=== PATIENT | male | born 1955 | race Caucasian/White ===

== ENCOUNTER 2019-09-25 15:47 | Inpatient (IN) | payer MEDICARE ==
[2019-09-25] MEDS ORDERED: MAG HYDROX/AL HYDROX/SIMETH 30 ML, HYOSCYAMINE ELIXIR 10 ML, LIDOCAINE VISCOUS 2% 10 ML PO STA ×3 (16:54)
[2019-09-25] MEDS ORDERED: SODIUM CHLORIDE 0.9% 500 ML 500 ML IV STA (16:54)
[2019-09-25 17:29] LABS: Basophils % (A) 0 %; Eosinophils % (A) 0 %; HCT 42.1 % (39.0-53.0); HGB 14.8 gm/dL (13.0-17.5); Lymphocytes # (A) 0.4 k/uL (1.0-4.8); Lymphocytes % (A) 3 %; MCH 29.8 pg (25.0-35.0); MCHC 35.2 g/dL (31.0-37.0); MCV 84.7 fL (80.0-100.0); Mean Platelet Volume 6.6; Monocytes # (A) 0.5 k/uL (0-1.0); Monocytes % (A) 4 %; Neutrophils # (A) 13.5 k/uL (1.3-7.7); Neutrophils % (A) 93 %; Platelet Count 207 k/uL (150-450); RBC 4.97 m/uL (4.30-5.90); RDW 13.4 % (11.5-15.5); WBC 14.6 k/uL (3.8-10.6)
[2019-09-25 17:42] LABS: Albumin 4.7 g/dL (3.5-5.0); Calcium 9.9 mg/dL (8.4-10.2); Potassium 3.9 mmol/L (3.5-5.1); Total Bilirubin 1.3 mg/dL (0.2-1.3)
[2019-09-25 17:45] LABS: Appearance,Urine Clear (Clear); Bilirubin,Urine Negative (Negative); Blood,Urine Small (Negative); Color,Urine Yellow; Glucose,Urine (UA) 4+ (Negative); Hyaline Casts,Urine 3 /lpf (0-2); Leukocyte Esterase,Urine Negative (Negative); Mucus,Urine Rare /hpf; Nitrite,Urine Negative (Negative); PH, Urine 5.5 (5.0-8.0); Protein,Urine 1+ (Negative); RBC,Urine 1 /hpf (0-5); Specific Gravity,Urine 1.019 (1.001-1.035); Urobilinogen,Urine <2.0 mg/dL (<2.0); WBC,Urine 1 /hpf (0-5)
[2019-09-25 17:54] LABS: Ketones,Urine 2+ (Negative)
[2019-09-25] MEDS ORDERED: SODIUM CHLORIDE 0.9% 1,000 ML IV STA (18:07)
[2019-09-25] MEDS ORDERED: ACETAMINOPHEN TAB 325 MG TAB PO STA (18:22)
[2019-09-25] MEDS ORDERED: PIPERACILLIN-TAZOBACTAM 3.375 GM in SODIUM CHLORIDE 0.9% 100 ML IVPB STA (19:07)
--- NOTE | 2019-09-25 19:08 | ED ---
General Adult HPI - General Chief complaint: Abdominal Pain Stated complaint: POSS MED REACTION Time Seen by Provider: 09/25/19 16:18 Source: patient, RN notes reviewed, old records reviewed Mode of arrival: ambulatory Limitations: no limitations - History of Present Illness Initial comments: 64-year-old male patient past history. Confer type 2 diabetes hypertension presents to ED for chief complaint of epigastric abdominal pain. Patient reports that he recently increased his dose of metformin. Patient reports that today he began to experience epigastric abdominal pain. Reports nausea without emesis. Denies any other complaints. Denies any nausea vomiting diarrhea. Systemic: Pt denies fatigue, fever/chills, rash. Pt denies weakness, night sw eats, weight loss. Neuro: Pt denies headache, visual disturbances, syncope or pre-syncope. HEENT: Pt denies ocular discharge or irritation, otalgia, rhinorrhea, pharyngitis or notable lymphadenopathy. Cardiopulmonary: Pt denies chest pain, SOB, heart palpitations, dyspnea on exertion. Abdominal/GI: Pt denies n/v/d. : Pt denies dysuria, burning w/ urination, frequency/urgency. Denies new onset urinary or bowel incontinence. MSK: Pt denies myalgia, loss of strength or function in extremities. Neuro: Pt denies new onset weakness, paresthesias. - Related Data Allergies Allergy/AdvReac Type Severity Reaction Status Date / Time No Known Allergies Allergy Verified 09/25/19 16:00 Review of Systems ROS Statement: Those systems with pertinent positive or pertinent negative responses have been documented in the HPI. ROS Other: All systems not noted in ROS Statement are negative. Past Medical History Past Medical History: Diabetes Mellitus, Hypertension History of Any Multi-Drug Resistant Organisms: None Reported Past Surgical History: Hernia Repair Past Psychological History: Depression Smoking Status: Never smoker Past Alcohol Use History: None Reported Past Drug Use History: None Reported General Exam - General Exam Comments Initial Comments: Constitutional: NAD, AOX3, Pt has pleasant affect. HEENT: NC/AT, trachea midline, neck supple, no lymphadenopathy. Posterior pharynx non erythematous, without exudates. External ears appear normal, without discharge. Mucous membranes moist. Eyes PERRLA, EOM intact. There is no scleral icterus. No pallor noted. Cardiopulmonary: RRR, no murmurs, rubs or gallops, no JVD noted. Lungs CTAB in anterior and posterior acevedo. No peripheral edema. Abdominal exam: Abdomen soft and non-distended. Abdomen mildly tender to palpation in epigastric region. No other areas of abdominal tenderness. Slaughter sign is negative. Bowel sounds active in LLQ. No hepatosplenomegaly. No ecchymosis Neuro: CN II-XII grossly intact. No nuchal rigidity. No raccon eyes, no arango sign, no hemotympanum. No cervical spinal tenderness. MSK: No posterior calf tenderness bilaterally, homans sign negative bilaterally. Posterior tibialis and radial pulse +2 bilaterally. Sensation intact in upper and lower extremities. Full active ROM in upper and lower extremities, 5/5 stregnth. Limitations: no limitations Course Vital Signs 09/25/19 09/25/19 09/25/19 15:57 18:15 19:09 Temperature 99.2 F 103.0 F H 102.5 F H Pulse Rate 89 111 H 100 Respiratory 20 18 18 Rate Blood Pressure 148/88 150/80 O2 Sat by Pulse 99 98 Oximetry Medical Decision Making - Medical Decision Making 64-year-old male patient presents to the chief complaint of one day of epigastric abdominal pain. Patient vital signs initially were stable afebrile. Patient did develop a fever during stay. Administered antipyretic. Physical exam slight epigastric tenderness. Laboratory investigations revealed a leuko cytosis of 14.6. Lactic acidosis of 2.4. UA displayed +2 ketones, +4 glucose. Small blood. Patient had no relief with GI cocktail. CT and pelvis displayed acute cholecystitis. EKG nonischemic. Patient will be admitted to Dr. Henley. Case discussed with Dr. Paul. - Lab Data Result diagrams: 09/25/19 16:15 09/25/19 16:15 Lab Results 09/25/19 09/25/19 09/25/19 Range/Units 16:15 16:15 16:15 WBC 14.6 H (3.8-10.6) k/uL RBC 4.97 (4.30-5.90) m/uL Hgb 14.8 (13.0-17.5) gm/dL Hct 42.1 (39.0-53.0) % MCV 84.7 (80.0-100.0) fL MCH 29.8 (25.0-35.0) pg MCHC 35.2 (31.0-37.0) g/dL RDW 13.4 (11.5-15.5) % Plt Count 207 (150-450) k/uL Neutrophils % 93 % Lymphocytes % 3 % Monocytes % 4 % Eosinophils % 0 % Basophils % 0 % Neutrophils # 13.5 H (1.3-7.7) k/uL Lymphocytes # 0.4 L (1.0-4.8) k/uL Monocytes # 0.5 (0-1.0) k/uL Eosinophils # 0.0 (0-0.7) k/uL Basophils # 0.0 (0-0.2) k/uL PT (9.0-12.0) sec INR (<1.2) APTT (22.0-30.0) sec Sodium 137 (137-145) mmol/L Potassium 3.9 (3.5-5.1) mmol/L Chloride 97 L (98-107) mmol/L Carbon Dioxide 23 (22-30) mmol/L Anion Gap 17 mmol/L BUN 19 (9-20) mg/dL Creatinine 1.35 H (0.66-1.25) mg/dL Est GFR (CKD-EPI)AfAm 63 (>60 ml/min/1.73 sqM) Est GFR (CKD-EPI)NonAf 55 (>60 ml/min/1.73 sqM) Glucose 189 H (74-99) mg/dL Plasma Lactic Acid Jose 2.4 H* (0.7-2.0) mmol/L Calcium 9.9 (8.4-10.2) mg/dL Total Bilirubin 1.3 (0.2-1.3) mg/dL AST 19 (17-59) U/L ALT 23 (21-72) U/L Alkaline Phosphatase 93 (38-126) U/L Total Protein 7.0 (6.3-8.2) g/dL Albumin 4.7 (3.5-5.0) g/dL Lipase 80 (23-300) U/L Urine Color Urine Appearance (Clear) Urine pH (5.0-8.0) Ur Specific [place] (1.001-1.035) Urine Protein (Negative) Urine Glucose (UA) (Negative) Urine Ketones (Negative) Urine Blood (Negative) Urine Nitrite (Negative) Urine Bilirubin (Negative) Urine Urobilinogen (<2.0) mg/dL Ur Leukocyte Esterase (Negative) Urine RBC (0-5) /hpf Urine WBC (0-5) /hpf Hyaline Casts (0-2) /lpf Urine Mucus (None) /hpf 09/25/19 09/25/19 Range/Units 16:15 17:20 WBC (3.8-10.6) k/uL RBC (4.30-5.90) m/uL Hgb (13.0-17.5) gm/dL Hct (39.0-53.0) % MCV (80.0-100.0) fL MCH (25.0-35.0) pg MCHC (31.0-37.0) g/dL RDW (11.5-15.5) % Plt Count (150-450) k/uL Neutrophils % % Lymphocytes % % Monocytes % % Eosinophils % % Basophils % % Neutrophils # (1.3-7.7) k/uL Lymphocytes # (1.0-4.8) k/uL Monocytes # (0-1.0) k/uL Eosinophils # (0-0.7) k/uL Basophils # (0-0.2) k/uL PT 10.6 (9.0-12.0) sec INR 1.0 (<1.2) APTT 28.4 (22.0-30.0) sec Sodium (137-145) mmol/L Potassium (3.5-5.1) mmol/L Chloride (98-107) mmol/L Carbon Dioxide (22-30) mmol/L Anion Gap mmol/L BUN (9-20) mg/dL Creatinine (0.66-1.25) mg/dL Est GFR (CKD-EPI)AfAm (>60 ml/min/1.73 sqM) Est GFR (CKD-EPI)NonAf (>60 ml/min/1.73 sqM) Glucose (74-99) mg/dL Plasma Lactic Acid Jose (0.7-2.0) mmol/L Calcium (8.4-10.2) mg/dL Total Bilirubin (0.2-1.3) mg/dL AST (17-59) U/L ALT (21-72) U/L Alkaline Phosphatase (38-126) U/L Total Protein (6.3-8.2) g/dL Albumin (3.5-5.0) g/dL Lipase (23-300) U/L Urine Color Yellow Urine Appearance Clear (Clear) Urine pH 5.5 (5.0-8.0) Ur Specific [place] 1.019 (1.001-1.035) Urine Protein 1+ H (Negative) Urine Glucose (UA) 4+ H (Negative) Urine Ketones 2+ H (Negative) Urine Blood Small H (Negative) Urine Nitrite Negative (Negative) Urine Bilirubin Negative (Negative) Urine Urobilinogen <2.0 (<2.0) mg/dL Ur Leukocyte Esterase Negative (Negative) Urine RBC 1 (0-5) /hpf Urine WBC 1 (0-5) /hpf Hyaline Casts 3 H (0-2) /lpf Urine Mucus Rare H (None) /hpf - EKG Data -: EKG Interpreted by Me (and Dr. Paul ) EKG Comments: Ventricular rate 105, PA 146, QRS 96, QT/QTC 350/462. Sinus tachycardia, no concern for acute ischemia. Disposition Clinical Impression: Acute cholecystitis Disposition: ADMITTED IP TO THIS HOSP Condition: Stable Is patient prescribed a controlled substance at d/c from ED?: No Referrals: Martir Hidalgo MD [Primary Care Provider] - 1-2 days
[2019-09-25] MEDS ORDERED: MORPHINE SULFATE 4 MG/ML SYRINGE IVP STA (19:10)
--- NOTE | 2019-09-25 19:12 | CT ---
EXAMINATION TYPE: CT abdomen pelvis w con DATE OF EXAM: 09/25/2019 COMPARISON: None. HISTORY: Upper abdominal pain and fever. CT DLP: 1130.4 mGycm, Automated Exposure Control for Dose Reduction was Utilized. CONTRAST: CT scan of the abdomen and pelvis is performed without oral but with IV Contrast, patient injected wi th 80 mL of Isovue 300. FINDINGS: LUNG BASES: Dependent atelectasis. LIVER/GB: Some scattered simple-appearing thin-walled cysts throughout the liver are present. There i s 3 mm common bile duct gallstone coronal image 51. There are 2 additional small calcified gallstones distal common bile duct coronal image 49 measuring between 2 to 3 mm. There a few additional depende nt calcified gallstones. Gallbladder has distended margins with mild surrounding inflammatory change and wall thickening. No significant intrahepatic or extra hepatic biliary dilatation is noted. PANCREAS: No significant abnormality is seen. SPLEEN: No significant abnormality is seen. ADRENALS: No significant abnormality is seen. KIDNEYS: Subcentimeter round lesion upper pole right kidney favor simple thin-walled clear axial imag e 41. BOWEL: Slightly prominent gas-filled cecum wandering into the anterior right midabdomen. No suspiciou s small or large bowel dilatation. Redundant sigmoid colon. PROSTATE/SEMINAL VESICLES: Mildly enlarged prostate gland consistent with BPH. Adjacent pelvic phlebo liths. LYMPH NODES: No greater than 1cm abdominal or pelvic lymph nodes are appreciated. OSSEOUS STRUCTURES: Moderate narrowing and spurring in both hip joints. Moderate multilevel spurring the visualized thoracic spine. Some facet arthropathy lower lumbar spine. OTHER: Mild calcified plaque aorta extends into branch vessels. IMPRESSION: Acute cholecystitis is present as detailed above. In addition, several common bile duct g allstones are noted without significant biliary dilatation. Findings discussed with ordering ER physician via telephone at time of dictation.
[2019-09-25 19:45] LABS: Partial Thromboplastin Time 28.4 sec (22.0-30.0); Prothrombin Time 10.6 sec (9.0-12.0)
[2019-09-25] MEDS ORDERED: ONDANSETRON 4 MG/2 ML VIAL IVP PRN (19:59)
[2019-09-25] MEDS ORDERED: NALOXONE 0.4 MG/ML 1 ML VIAL IV PRN (19:59)
[2019-09-25] MEDS ORDERED: IBUPROFEN 400 MG TAB PO PRN (20:03)
--- NOTE | 2019-09-25 20:11 | XR ---
EXAMINATION TYPE: XR chest 2V DATE OF EXAM: 09/25/2019 COMPARISON: Same day CT abdomen and pelvis study HISTORY: Presurgical study. TECHNIQUE: Frontal and lateral views of the chest are obtained. FINDINGS: There is nonspecific left basilar opacity silhouetting left hemidiaphragm on frontal view less well-seen likely more anterior on lateral view. Right lung is clear. The cardiac silhouette size is within normal limits. Mild multilevel spurring in the spine. IMPRESSION: Patchy left basilar likely lingular acute atelectasis.
[2019-09-25] MEDS: SODIUM CHLORIDE 0.9% 1,000 ML IV SCH (20:37)
[2019-09-25] MEDS ORDERED: SODIUM CHLORIDE 0.9% 2,000 ML IV ONE (20:59)
[2019-09-25] MEDS: ACETAMINOPHEN IV (For NPO) 1,000 MG in EMPTY BAG 1 BAG IVPB SCH ×2 (22:26→23:59)
[2019-09-25 23:55] LABS: Glucose,Whole Blood 179 mg/dL (75-99)
[2019-09-26] MEDS: INSULIN ASPART (NovoLOG) 100 UNIT/ML VIAL SQ SCH ×4 (00:09→17:26)
[2019-09-26] MEDS: PIPERACILLIN-TAZOBACTAM 3.375 GM in SODIUM CHLORIDE 0.9% 100 ML IVPB SCH ×4 (00:09→23:34)
[2019-09-26] MEDS: ACETAMINOPHEN IV (For NPO) 1,000 MG in EMPTY BAG 1 BAG IVPB SCH ×2 (04:40→11:35)
[2019-09-26] MEDS: SODIUM CHLORIDE 0.9% 1,000 ML IV SCH ×3 (06:16→23:34)
[2019-09-26 06:19] LABS: Glucose,Whole Blood 118 mg/dL (75-99)
[2019-09-26] MEDS: LISINOPRIL 10 MG TAB PO SCH (07:30)
[2019-09-26] MEDS: PANTOPRAZOLE 40 MG/10 ML VIAL IVP SCH (07:32)
--- NOTE | 2019-09-26 09:19 | P.GSHP ---
History of Present Illness H&P Date: 09/25/19 CHIEF COMPLAINT: Cholecystitis HISTORY OF PRESENT ILLNESS: The patient is a 64-year-old male who presents with history of epigastric including right upper quadrant abdominal pain ongoing for the last 2 days. Reports severe pressure along the epigastrium. No previous history of gallstones. He reports taking a new diabetic medication in the last 24-48 hours that prompted his symptoms. He reports eating cantaloupe yesterday. He denies any appetite today. Two days prior he did have [employer] bread soup. Two days ago, 6 hours following his soup he started to have abdominal pain that grew in intensity from moderate to severe hence his presentation today in the emergency room. He comes in with fevers over 102 documented in the ER. His pain is controlled with IV pain medications. Denies any prior cardiac history. He does report prior inguinal hernia surgery of the bilateral groins. Secondary to his presentation of fever, leukocytosis and sepsis, he has been admitted. PAST MEDICAL HISTORY: Please see list PAST SURGICAL HISTORY: Please see list MEDICATIONS: Please see list ALLERGIES: Denies. SOCIAL HISTORY: No illicit drug use or recent tobacco use FAMILY HISTORY: Pertinent for gallbladder disease REVIEW OF ORGAN SYSTEMS: CONSTITUTIONAL: Has fevers. No chills. HEENT: Denies any troubles with the hearing. Wears glasses. ENDOCRINE: No reports of hypothyroidism. Has diabetes. RESPIRATORY: No recent pneumonias. No asthma. CARDIOVASCULAR: Denies chest pain or palpitations. No recent EKG or cardiac workup beyond 1 year. GI: No blood in stools or constipation. Has gastroesophageal reflux disease. MUSCULOSKELETAL: Has occasional joint pain including back pain. NEURO: No seizure disorders or headaches. No recent stroke. PSYCH: Has depression. No suicidal ideation. HEMATOLOGIC: No personal or family history of DVTs or pulmonary emboli. SKIN: No rash or current skin cancer. PHYSICAL EXAM: VITAL SIGNS: Reviewed. GENERAL: Well-developed pleasant male in no acute distress. HEENT: No scleral icterus. Extraocular movements grossly intact. Moist buccal mucosa. NECK: Supple without lymphadenopathy. CHEST: Unlabored respirations. Equal bilateral excursions. CARDIOVASCULAR: Regular rate regular rhythm rhythm. Distal 2+ pulses. ABDOMEN: Soft, nondistended. Tender along the epigastrium and right upper quadrant. No peritonitis. MUSCULOSKELETAL: No clubbing, cyanosis, or edema. NEURO : No focal or lateralizing signs. Cranial nerves II-12 within normal limits. PSYCH: Alert and oriented to person, place and time. SKIN: Well perfused. Good skin turgor. STUDIES: CT of the abdomen and pelvis independently reviewed demonstrating gallstones at the infundibulum of the gallbladder. ASSESSMENT: 1. Epigastric and right upper quadrant abdominal pain 2. Acute cholecystitis 3. Sepsis PLAN: 1. Sepsis protocol activated in ER 2. Start IV antibiotics, broad spectrum 3. DVT prophylaxis 4. Incentive spirometer to prevent atelectasis 5. Nothing by mouth except ice chips and popsicles 6. Sliding scale insulin for diabetes 7. Will need echo and cardiac risk assessment prior to surgery Past Medical History Past Medical History: Diabetes Mellitus, Hypertension History of Any Multi-Drug Resistant Organisms: None Reported Past Surgical History: Hernia Repair Past Psychological History: Depression Smoking Status: Never smoker Past Alcohol Use History: None Reported Past Drug Use History: None Reported - Past Family History Mother Additional Family Medical History / Comment(s): brain tumer Medications and Allergies Home Medications Medication Instructions Recorded Confirmed Type Atorvastatin Calcium [Lipitor] 10 mg PO HS 09/25/19 09/25/19 History Lisinopril [Zestril] 10 mg PO DAILY 09/25/19 09/25/19 History Omeprazole 20 mg PO DAILY 09/25/19 09/25/19 History Sertraline [Zoloft] 100 mg PO DAILY 09/25/19 09/25/19 History buPROPion XL [Wellbutrin Xl] 150 mg PO [id number]-BRKFST 09/25/19 09/25/19 History metFORMIN HCL ER [Glucophage Xr] 1,000 mg PO AC-BID 09/25/19 09/25/19 History Allergies Allergy/AdvReac Type Severity Reaction Status Date / Time No Known Allergies Allergy Verified 09/25/19 20:46 Surgical - Exam Vital Signs Temp Pulse Resp BP Pulse Ox 99.2 F 89 20 148/88 99 09/25/19 15:57 09/25/19 15:57 09/25/19 15:57 09/25/19 15:57 09/25/19 15:57 Results - Labs 09/25/19 16:15 09/25/19 16:15 Abnormal Lab Results - Last 24 Hours (Table) 09/25/19 09/25/19 09/25/19 Range/Units 16:15 16:15 16:15 WBC 14.6 H (3.8-10.6) k/uL Neutrophils # 13.5 H (1.3-7.7) k/uL Lymphocytes # 0.4 L (1.0-4.8) k/uL Chloride 97 L (98-107) mmol/L Creatinine 1.35 H (0.66-1.25) mg/dL Glucose 189 H (74-99) mg/dL Plasma Lactic Acid Jose 2.4 H* (0.7-2.0) mmol/L Urine Protein (Negative) Urine Glucose (UA) (Negative) Urine Ketones (Negative) Urine Blood (Negative) Hyaline Casts (0-2) /lpf Urine Mucus (None) /hpf 09/25/19 Range/Units 17:20 WBC (3.8-10.6) k/uL Neutrophils # (1.3-7.7) k/uL Lymphocytes # (1.0-4.8) k/uL Chloride (98-107) mmol/L Creatinine (0.66-1.25) mg/dL Glucose (74-99) mg/dL Plasma Lactic Acid Jose (0.7-2.0) mmol/L Urine Protein 1+ H (Negative) Urine Glucose (UA) 4+ H (Negative) Urine Ketones 2+ H (Negative) Urine Blood Small H (Negative) Hyaline Casts 3 H (0-2) /lpf Urine Mucus Rare H (None) /hpf Diabetes panel 09/25/19 Range/Units 16:15 Sodium 137 (137-145) mmol/L Potassium 3.9 (3.5-5.1) mmol/L Chloride 97 L (98-107) mmol/L Carbon Dioxide 23 (22-30) mmol/L BUN 19 (9-20) mg/dL Creatinine 1.35 H (0.66-1.25) mg/dL Glucose 189 H (74-99) mg/dL Calcium 9.9 (8.4-10.2) mg/dL AST 19 (17-59) U/L ALT 23 (21-72) U/L Alkaline Phosphatase 93 (38-126) U/L Total Protein 7.0 (6.3-8.2) g/dL Albumin 4.7 (3.5-5.0) g/dL Calcium panel 09/25/19 Range/Units 16:15 Calcium 9.9 (8.4-10.2) mg/dL Albumin 4.7 (3.5-5.0) g/dL Pituitary panel 09/25/19 Range/Units 16:15 Sodium 137 (137-145) mmol/L Potassium 3.9 (3.5-5.1) mmol/L Chloride 97 L (98-107) mmol/L Carbon Dioxide 23 (22-30) mmol/L BUN 19 (9-20) mg/dL Creatinine 1.35 H (0.66-1.25) mg/dL Glucose 189 H (74-99) mg/dL Calcium 9.9 (8.4-10.2) mg/dL Adrenal panel 09/25/19 Range/Units 16:15 Sodium 137 (137-145) mmol/L Potassium 3.9 (3.5-5.1) mmol/L Chloride 97 L (98-107) mmol/L Carbon Dioxide 23 (22-30) mmol/L BUN 19 (9-20) mg/dL Creatinine 1.35 H (0.66-1.25) mg/dL Glucose 189 H (74-99) mg/dL Calcium 9.9 (8.4-10.2) mg/dL Total Bilirubin 1.3 (0.2-1.3) mg/dL AST 19 (17-59) U/L ALT 23 (21-72) U/L Alkaline Phosphatase 93 (38-126) U/L Total Protein 7.0 (6.3-8.2) g/dL Albumin 4.7 (3.5-5.0) g/dL Assessment and Plan (1) Sepsis Current Visit: Yes Status: Acute Code(s): A41.9 - SEPSIS, UNSPECIFIED ORGANISM SNOMED Code(s): 22469876 (2) Fever Current Visit: Yes Status: Acute Code(s): R50.9 - FEVER, UNSPECIFIED SNOMED Code(s): 337176399 (3) Acute cholecystitis due to biliary calculus Current Visit: Yes Status: Acute Code(s): K80.00 - CALCULUS OF GALLBLADDER W ACUTE CHOLECYST W/O OBSTRUCTION SNOMED Code(s): 04047456219205 (4) Diabetes type 2, uncontrolled Current Visit: Yes Status: Acute Code(s): E11.65 - TYPE 2 DIABETES MELLITUS WITH HYPERGLYCEMIA SNOMED Code(s): 283349098 (5) Hypertensive heart disease Current Visit: Yes Status: Acute Code(s): I11.9 - HYPERTENSIVE HEART DISEASE WITHOUT HEART FAILURE SNOMED Code(s): 27514043 (6) Depressive disorder Current Visit: Yes Status: Acute Code(s): F32.9 - MAJOR DEPRESSIVE DISORDER, SINGLE EPISODE, UNSPECIFIED SNOMED Code(s): 59656722 (7) Acute cholecystitis Current Visit: Yes Status: Acute Code(s): K81.0 - ACUTE CHOLECYSTITIS SNOMED Code(s): 83944877 (8) Hyperlipidemia associated with type 2 diabetes mellitus Current Visit: Yes Status: Acute Code(s): E11.69 - TYPE 2 DIABETES MELLITUS WITH OTHER SPECIFIED COMPLICATION; E78.5 - HYPERLIPIDEMIA, UNSPECIFIED SNOMED Code(s): 885866881665
[2019-09-26] MEDS: MORPHINE SULFATE 4 MG/ML SYRINGE IV PRN ×2 (09:26→16:27)
[2019-09-26 10:21] LABS: Basophils % (A) 0 %; Eosinophils % (A) 0 %; HCT 37.2 % (39.0-53.0); HGB 12.7 gm/dL (13.0-17.5); Lymphocytes # (A) 0.4 k/uL (1.0-4.8); Lymphocytes % (A) 3 %; MCH 29.5 pg (25.0-35.0); MCHC 34.3 g/dL (31.0-37.0); MCV 85.9 fL (80.0-100.0); Mean Platelet Volume 6.6; Monocytes # (A) 0.4 k/uL (0-1.0); Monocytes % (A) 4 %; Neutrophils # (A) 11.4 k/uL (1.3-7.7); Neutrophils % (A) 92 %; Platelet Count 140 k/uL (150-450); RBC 4.32 m/uL (4.30-5.90); RDW 13.8 % (11.5-15.5); WBC 12.3 k/uL (3.8-10.6)
--- NOTE | 2019-09-26 10:26 | ECHOF ---
Referral Reason:hypertension MEASUREMENTS -------- HEIGHT: 182.9 cm WEIGHT: 92.1 kg BP: RVIDd: 2.9 cm (< 3.3) IVSd: 1.4 cm (0.6 - 1.1) LVIDd: 4.8 cm (3.9 - 5.3) LVPWd: 1.4 cm (0.6 - 1.1) IVSs: 1.9 cm LVIDs: 3.7 cm LVPWs: 1.8 cm LA Diam: 3.9 cm (2.7 - 3.8) LAESV Index (A-L): 22.11 ml/m Ao Diam: 3.5 cm (2.0 - 3.7) AV Cusp: 2.3 cm (1.5 - 2.6) LA Diam: 4.3 cm (2.7 - 3.8) MV EXCURSION: 13.189 mm (> 18.000) MV EF SLOPE: 65 mm/s (70 - 150) EPSS: 0.9 cm MV E Gabino: 0.53 m/s MV DecT: 212 ms MV A Gabino: 1.02 m/s MV E/A Ratio: 0.53 AR PHT: 353 ms RAP: 5.00 mmHg RVSP: 48.13 mmHg FINDINGS -------- Sinus rhythm. This was a technically adequate study. The left ventricular size is normal. There is mild concentric left ventricular hypertrophy. Overa ll left ventricular systolic function is low-normal with, an EF between 50 - 55 %. The right ventricle is normal in size. The right atrial size is normal. There is [id number] aortic regurgitation. Mild mitral annular calcification present. Mild mitral regurgitation is present. Moderate tricuspid regurgitation present. There is moderate pulmonary hypertension. The right damion tricular systolic pressure, as measured by Doppler, is 48.13mmHg. There is no pulmonic regurgitation present. The aortic root size is normal. There is no pericardial effusion. CONCLUSIONS -------- 1. Sinus rhythm. 2. This was a technically adequate study. 3. The left ventricular size is normal. 4. There is mild concentric left ventricular hypertrophy. 5. Overall left ventricular systolic function is low-normal with, an EF between 50 - 55 %. 6. The right ventricle is normal in size. 7. The right atrial size is normal. 8. There is [id number] aortic regurgitation. 9. Mild mitral annular calcification present. 10. Mild mitral regurgitation is present. 11. Moderate tricuspid regurgitation present. 12. There is moderate pulmonary hypertension. 13. The right ventricular systolic pressure, as measured by Doppler, is 48.13mmHg. 14. There is no pulmonic regurgitation present. 15. The aortic root size is normal. 16. There is no pericardial effusion. [employer] HATCHERY HELPER: Sangeetha Kay RDCS
[2019-09-26 10:30] LABS: Albumin 3.1 g/dL (3.5-5.0); Calcium 8.7 mg/dL (8.4-10.2); Potassium 4.5 mmol/L (3.5-5.1); Total Bilirubin 4.7 mg/dL (0.2-1.3); Total Protein 5.4 g/dL (6.3-8.2)
[2019-09-26] MEDS ORDERED: METOPROLOL TARTRATE 25 MG TAB PO SCH (11:30)
--- NOTE | 2019-09-26 11:54 | P.CRDCN ---
History of Present Illness History of present illness: HISTORY OF PRESENTING ILLNESS This is a pleasant 64-year-old male past medical history significant for dyslipidemia, diabetes mellitus and hypertension. He denies prior history of coronary artery disease and does not follow with a inspector line for any reason. He presented with abdominal pain and has been diagnosed with acute cholecystitis scheduled for laparoscopic cholecystectomy with Dr. Armstrong tomorrow. We have been asked to see him in consultation for preoperative ev aluation. He seen and examined resting comfortably laying flat in bed in no acute distress. He states he had been having abdominal pain for approximately 2 days prior to arrival. He continues to complain of right upper quadrant abdominal discomfort. He denies symptoms of chest discomfort, shortness of breath, dizziness or palpitations. He states he had a stress test approximately 10 years ago that was unremarkable. Echocardiogram obtained reveals preserved LV systolic function with ejection fraction 50-55%, moderate tricuspid regurgitation and moderate pulmonary hypertension with an RVSP of 48 mmHg. DIAGNOSTICS EKG reveals sinus mechanism with nonspecific ST abnormalities, no acute ST or T- wave abnormalities. Chest xray to left basilar atelectasis. CT of the abdomen pelvis reveals acute cholecystitis, several common bile duct gallstones noted with significant biliary dilatation. Laboratory reviewed, WBC 14.6, hemoglobin 14.8, platelets 207, sodium 137, potassium 3.9, creatinine 1.35, lactic acid on admission 2. 4 repeat 1.0, cardiac enzymes negative 1. Current cardiac medications include atorvastatin 10 mg daily and lisinopril 10 mg daily. REVIEW OF SYSTEMS At the time of my exam: CONSTITUTIONAL: Denies fever or chills. CARDIOVASCULAR: Denies chest pain, shortness of breath, orthopnea, PND or palpitations. RESPIRATORY: Denies cough. GASTROINTESTINAL: Complains of abdominal pain. Denies diarrhea, constipation, nausea or vomiting. MUSCULOSKELETAL: Denies myalgias. NEUROLOGIC: Denies numbness, tingling or weakness. ENDOCRINE: Denies fatigue, weight change, polydipsia or polyurina. GENITOURINARY: Denies burning, hematuria or urgency with micturation. HEMATOLOGIC: Denies history of anemia or bleeding. PHYSICAL EXAMINATION Blood pressure 130/79 heart rate 80 afebrile and maintaining oxygen saturaiton on room air. CONSTITUTIONAL: No apparent distress. HEENT: Head is normocephalic. Pupils are equal, round. Sclerae anicteric. Mucous membranes of the mouth are moist. No JVD. No carotid bruit. CHEST EXAMINATION: Lungs are clear to auscultation. No chest wall tenderness is noted on palpation or with deep breathing. HEART EXAMINATION: Regular rate and rhythm. S1, S2 heard. No murmurs, gallops or rub. ABDOMEN: Soft, nontender. Positive bowel sounds. EXTREMITIES: 2+ peripheral pulses, no lower extremity edema and no calf tenderness. NEUROLOGIC EXAMINATION: Patient is awake, alert and oriented x3. ASSESSMENT Acute cholecystitis Leukocytosis Febrile illness Lactic acidosis on admission, resolved Hypertension Dyslipidemia Diabetes mellitus PLAN Clinically he is euvolemic and has no symptoms of angina. There are no absolute contraindications to undergo surgical intervention. Recommend cautious fluid administration and optimal blood pressure control. Thank you kindly for this consultation. Nurse Practitioner note has been reviewed, I agree with a documented findings and plan of care. Patient was seen and examined. Past Medical History Past Medical History: Diabetes Mellitus, Hypertension History of Any Multi-Drug Resistant Organisms: None Reported Past Surgical History: Hernia Repair Past Anesthesia/Blood Transfusion Reactions: No Reported Reaction Past Psychological History: Depression Smoking Status: Never smoker Past Alcohol Use History: None Reported Past Drug Use History: None Reported - Past Family History Mother Additional Family Medical History / Comment(s): brain tumer Medications and Allergies Home Medications Medication Instructions Recorded Confirmed Type Atorvastatin Calcium [Lipitor] 10 mg PO HS 09/25/19 09/25/19 History Lisinopril [Zestril] 10 mg PO DAILY 09/25/19 09/25/19 History Omeprazole 20 mg PO DAILY 09/25/19 09/25/19 History Sertraline [Zoloft] 100 mg PO DAILY 09/25/19 09/25/19 History buPROPion XL [Wellbutrin Xl] 150 mg PO AC-BRKFST 09/25/19 09/25/19 History metFORMIN HCL ER [Glucophage Xr] 1,000 mg PO AC-BID 09/25/19 09/25/19 History Allergies Allergy/AdvReac Type Severity Reaction Status Date / Time No Known Allergies Allergy Verified 09/25/19 20:46 Physical Exam Vitals: Vital Signs Temp Pulse Pulse Resp BP BP Pulse Ox 09/26/19 04:35 97.8 F 80 20 130/79 94 L 09/25/19 22:00 98.4 F 95 20 110/68 93 L 09/25/19 20:36 99.5 F 83 18 142/84 97 09/25/19 19:09 102.5 F H 100 18 09/25/19 18:15 103.0 F H 111 H 18 150/80 98 09/25/19 15:57 99.2 F 89 20 148/88 99 Intake and Output 09/25/19 09/26/19 09/26/19 22:59 06:59 14:59 Intake Total 100 Balance 100 Intake: Oral 100 Other: Voiding Method Toilet Urinal # Voids 1 Weight 92.079 kg Results 09/26/19 09:44 09/26/19 09:44 Cardiac Enzymes 09/25/19 09/25/19 Range/Units 16:15 19:25 AST 19 (17-59) U/L Troponin I 0.015 (0.000-0.034) ng/mL Coagulation 09/25/19 Range/Units 16:15 PT 10.6 (9.0-12.0) sec APTT 28.4 (22.0-30.0) sec CBC 09/25/19 Range/Units 16:15 WBC 14.6 H (3.8-10.6) k/uL RBC 4.97 (4.30-5.90) m/uL Hgb 14.8 (13.0-17.5) gm/dL Hct 42.1 (39.0-53.0) % Plt Count 207 (150-450) k/uL Comprehensive Metabolic Panel 09/25/19 Range/Units 16:15 Sodium 137 (137-145) mmol/L Potassium 3.9 (3.5-5.1) mmol/L Chloride 97 L (98-107) mmol/L Carbon Dioxide 23 (22-30) mmol/L BUN 19 (9-20) mg/dL Creatinine 1.35 H (0.66-1.25) mg/dL Glucose 189 H (74-99) mg/dL Calcium 9.9 (8.4-10.2) mg/dL AST 19 (17-59) U/L ALT 23 (21-72) U/L Alkaline Phosphatase 93 (38-126) U/L Total Protein 7.0 (6.3-8.2) g/dL Albumin 4.7 (3.5-5.0) g/dL Current Medications Generic Name Dose Route Start Last Admin Trade Name Spencerq PRN Reason Stop Dose Admin Acetaminophen 650 mg 09/25/19 20:02 Tylenol Tab PO Q6HR PRN Fever and/ or Pain Sodium Chloride 1,000 mls @ 100 mls/hr 09/25/19 20:00 09/26/19 06:16 Saline 0.9% IV 100 mls/hr .Q10H EMMANUEL Administration Piperacillin Sod/Tazobactam 100 mls @ 25 mls/hr 09/26/19 00:00 09/26/19 07:32 Sod 3.375 gm/ Sodium Chloride IVPB 25 mls/hr Q8HR EMMANUEL Administration Acetaminophen 1,000 mg/ IV 100 mls @ 400 mls/hr 09/25/19 21:00 09/26/19 04:40 Solution IVPB 09/26/19 12:14 400 mls/hr Q6HR EMMANUEL Administration Insulin Aspart 0 unit 09/26/19 00:00 09/26/19 06:17 Novolog SQ Not Given Q6HR [facility] Protocol Lisinopril 10 mg 09/26/19 09:00 09/26/19 07:30 Zestril PO 10 mg DAILY EMMANUEL Administration Morphine Sulfate 4 mg 09/25/19 19:59 09/26/19 09:26 Morphine Sulfate (Inj) IV 4 mg Q4HR PRN Administration Severe Pain Naloxone HCl 0.2 mg 09/25/19 19:59 Narcan IV Q2M PRN Opioid Reversal Ondansetron HCl 4 mg 09/25/19 19:59 Zofran IVP Q8HR PRN Nausea And Vomiting Pantoprazole Sodium 40 mg 09/26/19 09:00 09/26/19 07:32 Protonix IVP 40 mg DAILY EMMANUEL Administration Intake and Output 09/25/19 09/26/19 09/26/19 22:59 06:59 14:59 Intake Total 100 Balance 100 Intake: Oral 100 Other: Voiding Method Toilet Urinal # Voids 1 Weight 92.079 kg 09/25/19 16:15 09/25/19 16:15
[2019-09-26 12:04] LABS: Glucose,Whole Blood 124 mg/dL (75-99)
--- NOTE | 2019-09-26 13:35 | P.PN ---
Subjective Progress Note Date: 09/26/19 CHIEF COMPLAINT: Acute cholecystitis HISTORY OF PRESENT ILLNESS: The patient is a 64-year-old gentleman who presented with fevers, right upper quadrant abdominal pain, leukocytosis. Diagnostic studies demonstrated acute cholecystitis. Today he reports pressure along the right upper abdomen. He has minimal appetite. ROS: No reports of nausea and vomiting. Had fevers in last 24 hours T-max 103. No productive sputum PHYSICAL EXAM: VITAL SIGNS: Reviewed CONSTITUTIONAL: Well developed and in mild distress. EYES: Conjuctivae with sclera icterus. Extraocular movements grossly intact. HEAD, EARS, NOSE, THROAT: Moist buccal mucosa. Head is atraumatic, normocephalic. Hears conversational speech. No nasal drainage. NECK: Supple. No thyroidomegaly. RESPIRATORY: Non-labored respirations and equal bilateral excursions. CARDIOVASCULAR: Palpable 2+ radial pulses. ABDOMEN: Soft. Non-tender. MUSCULOSKELETAL: No gross deformity of the lower extremities noted. No clubbing. No cyanosis. SKIN: Good skin turgor. Well perfused. NEUROLOGIC: Cranial nerves I through XII grossly intact. No focal or lateralizing signs. PSYCH: Appropriate affect. Alert and oriented to person, place and time. CLINCAL LABS: Reviewed with new elevated liver enzymes AST and ALT over 300s including total bilirubin of 4.7. White blood cell count elevated 12.1. ASSESSMENT: 1. Cholecystitis with presentation of sepsis 2. Elevated liver enzymes PLAN: 1. He has new elevated liver enzymes with jaundice, right upper quadrant abdominal pain, fevers suspicious for ascending cholangitis. I personally contacted gastroenterology for consultation for ERCP evaluation. 2. Continue IV antibiotics 3. With sepsis protocol, lactate improved upon admission after 3-L normal saline bolus Objective - Vital Signs Vital signs: Vital Signs Temp 97.8 F 09/26/19 04:35 Pulse 89 09/26/19 11:40 Resp 20 09/26/19 04:35 BP 138/80 09/26/19 11:40 Pulse Ox 94 L 09/26/19 04:35 Intake & Output 09/25/19 09/26/19 09/26/19 18:59 06:59 18:59 Intake Total 100 Balance 100 Weight 92.079 kg 92.079 kg Intake: Oral 100 Other: Voiding Method Toilet Urinal # Voids 1 - Labs CBC & Chem 7: 09/26/19 09:44 09/26/19 09:44 Labs: Abnormal Lab Results - Last 24 Hours (Table) 09/25/19 09/25/19 09/25/19 Range/Units 16:15 16:15 16:15 WBC 14.6 H (3.8-10.6) k/uL Hgb (13.0-17.5) gm/dL Hct (39.0-53.0) % Plt Count (150-450) k/uL Neutrophils # 13.5 H (1.3-7.7) k/uL Lymphocytes # 0.4 L (1.0-4.8) k/uL Chloride 97 L (98-107) mmol/L Creatinine 1.35 H (0.66-1.25) mg/dL Glucose 189 H (74-99) mg/dL POC Glucose (mg/dL) (75-99) mg/dL Plasma Lactic Acid Jose 2.4 H* (0.7-2.0) mmol/L Total Bilirubin (0.2-1.3) mg/dL AST (17-59) U/L ALT (21-72) U/L Alkaline Phosphatase (38-126) U/L Total Protein (6.3-8.2) g/dL Albumin (3.5-5.0) g/dL Urine Protein (Negative) Urine Glucose (UA) (Negative) Urine Ketones (Negative) Urine Blood (Negative) Hyaline Casts (0-2) /lpf Urine Mucus (None) /hpf 09/25/19 09/25/19 09/26/19 Range/Units 17:20 23:52 06:16 WBC (3.8-10.6) k/uL Hgb (13.0-17.5) gm/dL Hct (39.0-53.0) % Plt Count (150-450) k/uL Neutrophils # (1.3-7.7) k/uL Lymphocytes # (1.0-4.8) k/uL Chloride (98-107) mmol/L Creatinine (0.66-1.25) mg/dL Glucose (74-99) mg/dL POC Glucose (mg/dL) 179 H 118 H (75-99) mg/dL Plasma Lactic Acid Jose (0.7-2.0) mmol/L Total Bilirubin (0.2-1.3) mg/dL AST (17-59) U/L ALT (21-72) U/L Alkaline Phosphatase (38-126) U/L Total Protein (6.3-8.2) g/dL Albumin (3.5-5.0) g/dL Urine Protein 1+ H (Negative) Urine Glucose (UA) 4+ H (Negative) Urine Ketones 2+ H (Negative) Urine Blood Small H (Negative) Hyaline Casts 3 H (0-2) /lpf Urine Mucus Rare H (None) /hpf 09/26/19 09/26/19 09/26/19 Range/Units 09:44 09:44 12:02 WBC 12.3 H (3.8-10.6) k/uL Hgb 12.7 L (13.0-17.5) gm/dL Hct 37.2 L (39.0-53.0) % Plt Count 140 L (150-450) k/uL Neutrophils # 11.4 H (1.3-7.7) k/uL Lymphocytes # 0.4 L (1.0-4.8) k/uL Chloride (98-107) mmol/L Creatinine 1.41 H (0.66-1.25) mg/dL Glucose 122 H (74-99) mg/dL POC Glucose (mg/dL) 124 H (75-99) mg/dL Plasma Lactic Acid Jose (0.7-2.0) mmol/L Total Bilirubin 4.7 H (0.2-1.3) mg/dL AST 318 H (17-59) U/L ALT 546 H (21-72) U/L Alkaline Phosphatase 156 H (38-126) U/L Total Protein 5.4 L (6.3-8.2) g/dL Albumin 3.1 L (3.5-5.0) g/dL Urine Protein (Negative) Urine Glucose (UA) (Negative) Urine Ketones (Negative) Urine Blood (Negative) Hyaline Casts (0-2) /lpf Urine Mucus (None) /hpf Assessment and Plan (1) Sepsis Current Visit: Yes Status: Acute Code(s): A41.9 - SEPSIS, UNSPECIFIED ORGANISM SNOMED Code(s): 66607677 (2) Fever Current Visit: Yes Status: Acute Code(s): R50.9 - FEVER, UNSPECIFIED SNOMED Code(s): 922329929 (3) Acute cholecystitis due to biliary calculus Current Visit: Yes Status: Acute Code(s): K80.00 - CALCULUS OF GALLBLADDER W ACUTE CHOLECYST W/O OBSTRUCTION SNOMED Code(s): 67409650675671 (4) Diabetes type 2, uncontrolled Current Visit: Yes Status: Acute Code(s): E11.65 - TYPE 2 DIABETES MELLITUS WITH HYPERGLYCEMIA SNOMED Code(s): 033125325 (5) Hypertensive heart disease Current Visit: Yes Status: Acute Code(s): I11.9 - HYPERTENSIVE HEART DISEASE WITHOUT HEART FAILURE SNOMED Code(s): 68136712 (6) Depressive disorder Current Visit: Yes Status: Acute Code(s): F32.9 - MAJOR DEPRESSIVE DISORDER, SINGLE EPISODE, UNSPECIFIED SNOMED Code(s): 16167190 (7) Acute cholecystitis Current Visit: Yes Status: Acute Code(s): K81.0 - ACUTE CHOLECYSTITIS SNOMED Code(s): 28704606 (8) Hyperlipidemia associated with type 2 diabetes mellitus Current Visit: Yes Status: Acute Code(s): E11.69 - TYPE 2 DIABETES MELLITUS WITH OTHER SPECIFIED COMPLICATION; E78.5 - HYPERLIPIDEMIA, UNSPECIFIED SNOMED Code(s): 161577279488 (9) Cholangitis due to bile duct calculus with obstruction Current Visit: Yes Status: Acute Code(s): K80.31 - CALCULUS OF BILE DUCT W CHOLANGITIS, UNSP, WITH OBSTRUCTION SNOMED Code(s): 3818778843438545
[2019-09-26 17:21] LABS: Glucose,Whole Blood 121 mg/dL (75-99)
--- NOTE | 2019-09-26 23:40 | CONS ---
CONSULTATION DATE OF DICTATION: 09/26/2019 REASON FOR CONSULTATION: Possible ERCP. The patient is a 64-year-old pleasant white male admitted to the hospital yesterday when he presented with severe epigastric pain radiating to the back for the last 3 days' duration. The pain continued to progressively get worse. He came to the emergency room yesterday. He had ultrasound of the gallbladder done that showed evidence of gallstones. He was seen by Dr. Saenz and was scheduled for gallbladder surgery today. However, this morning he was noted to have elevated LFTs and jaundice, and hence we are consulted for possible ERCP. The patient is feeling much better today. He denies any abdominal pain. He reports did have a fever of 101.5 yesterday night prior to hospitalization. He never had these symptoms in the past. Ultrasound of the abdomen did show evidence of gallstones as well a CBD stone with no biliary ductal dilation. His labs showed a bilirubin of 4.7, AST and ALT in the range of 400. PAST MEDICAL HISTORY: Past medical history is significant for hypertension, GERD, hyperlipidemia, anxiety, depression, diabetes mellitus. MEDICATIONS AT HOME: 1. Metformin. 2. Wellbutrin. 3. Zoloft. 4. Omeprazole. 5. Zestril., atorvastatin. ALLERGIES: NONE. SOCIAL HISTORY: No smoking. No alcohol use. FAMILY HISTORY: Unremarkable. REVIEW OF SYSTEMS: CARDIOPULMONARY: No chest pain or shortness of breath. GENITOURINARY: No dysuria or hematuria. MUSCULOSKELETAL: Unremarkable. SKIN: Unremarkable. ENDOCRINE: Unremarkable. PSYCHIATRIC: Unremarkable. NEUROLOGY: Unremarkable. ENT/VISION: Unremarkable. CONSTITUTIONAL: No recent weight loss. No fever, chills, night sweats. PHYSICAL EXAMINATION: He appears comfortable. No apparent distress. Vital signs is stable. Blood pressure is 132/86, pulse rate 82, temperature 99.2. HEENT examination unremarkable. Conjunctivae pink. Sclerae anicteric. Oral cavity no lesions. NECK: No JVD or lymph node enlargement. CHEST: Clear to auscultation. HEART: Regular rate and rhythm. ABDOMEN: Soft. Bowel sounds are positive. Mild tenderness in the epigastric area, EXTREMITIES: No pedal edema. SKIN: No rashes. NEUROLOGIC: Alert and oriented x3. No focal deficits. LABS: Labs from today show WBC 12.3, hemoglobin 12.7, platelets normal. T-bilirubin 4.7. AST and ALT 318 and 546, respectively. Alkaline phosphatase 156. Yesterday all labs were within normal limits. IMPRESSION: This is a patient who presented to the hospital with acute onset of severe epigastric pain associated with nausea, vomiting and fever, all consistent with acute cholecystitis. Cannot rule out ascending cholangitis. Patient on broad-spectrum antibiotics and he is doing much better. He is noted to have elevated LFTs and jaundice, as mentioned above. Ultrasound of the abdomen did show evidence of gallstones as well as small CBD stones with no biliary duct dilation. RECOMMENDATIONS: 1. Continue with broad-spectrum antibiotics. 2. Clear liquid diet. 3. N.p.o. after midnight. 4. Will proceed with an ERCP tomorrow. I discussed with the patient risks, benefits and complications, including pancreatitis, perforation, bleeding, and he is agreeable to it. Will repeat labs in the morning. Will follow with you closely. Thank you for this consultation. MMODL / IJN: [id number] /
[2019-09-27] MEDS ORDERED: LACTATED RINGERS 1,000 ML IV ONE ×2 (00:06→22:05)
[2019-09-27 00:16] LABS: Glucose,Whole Blood 139 mg/dL (75-99)
[2019-09-27] MEDS: INSULIN ASPART (NovoLOG) 100 UNIT/ML VIAL SQ SCH ×4 (00:23→17:18)
[2019-09-27] MEDS ORDERED: INDOMETHACIN 50MG SUPPOSITORY RECTAL ONE (06:00)
[2019-09-27] MEDS: MORPHINE SULFATE 4 MG/ML SYRINGE IV PRN ×2 (06:04→16:25)
[2019-09-27 06:11] LABS: Glucose,Whole Blood 151 mg/dL (75-99)
[2019-09-27] MEDS ORDERED: GLUCAGON 1 MG/ML VIAL ONE (06:58)
[2019-09-27] MEDS ORDERED: PROPOFOL 10 MG/ML 20 ML VIAL IV ONE ×2 (06:58→21:02)
[2019-09-27] MEDS ORDERED: KETAMINE 10 MG/ML 20 ML VIAL ONE (06:58)
[2019-09-27] MEDS ORDERED: LIDOCAINE 1% INJ 10MG/ML (20 ML MDV) ONE ×2 (06:58→21:02)
[2019-09-27] MEDS ORDERED: MIDAZOLAM 2 MG/2 ML VIAL ONE ×2 (06:58→21:02)
[2019-09-27] MEDS ORDERED: IV FLUID CONTINUATION 1,000 ML IV ONE (07:39)
[2019-09-27] MEDS ORDERED: IOPAMIDOL-300 50ML BTL MISCELLANE ONE (07:39)
--- NOTE | 2019-09-27 07:43 | P.PCN ---
Date of Procedure: 09/27/19 Procedure(s) Performed: Brief history: Patient is a [id number] pleasant white male scheduled for an ERCP as part of evaluation of abdominal pain and elevated serum transaminases, jaundice for the last 2 days' duration. He presented to the hospital with abdominal pain and symptomatic gallstones possible acute cholecystitis. at the time of admission to hospital LFTs were within normal limits. Yesterday increased with a bilirubin of 4.7 and AST and AST in 3 to 500s. Ultrasound of abdomen did show evidence of CBD stones as well as gallstones. Procedure performed: ERCP with biliary sphincterotomy and balloon stone extraction Preoperative diagnoses: abdominal pain/intermittent LFTs and jaundice IV sedation per anesthesia: Procedure: After informed consent was obtained from the patient and after the risks benefits and complications including bleeding perforation and pancreatitis explained in detail the patient was brought into the endoscopy unit. The patient was placed in prone position and IV conscious sedation was administered by anesthesia under continuous monitoring. The Olympus side-viewing duodenoscope was then inserted into the mouth and esophagus intubated without any difficulty. The scope was gradually advanced into the stomach and duodenum. The major papilla was identified without any difficulty. initial cannulation resulted in opacification of the pancreatic duct. Subsequent cannulation resulted in a presedation of the common bile duct and upon injection of the dye there was 2 small filling defects identified measuring about 3-4 mm in size. There was no biliary dilation seen. At this time a biliary sphincterotomy was performed after the catheter was exchanged over a guidewire and was extended to 1 cm. Following this an 8.5 mm balloon catheter was advanced over the wire into the proximal CBD inflated and withdrawn and 2 small stones were seen exiting the ampulla with small amount of sludge. Occlusion cholangiogram performed at this time and no other filling defects were identified. Patient tolerated the procedure well. Impression: 1. Normal pancreatic duct 2. Normal common bile duct with 2 small filling defects status post biliary sphincterotomy and balloon stone extraction of 2 CBD stones measuring 3-4 mm in size as described above Recommendations: The findings of this examination were discussed with the patient as well as a family. He'll be kept nothing by mouth as patient is scheduled for a laparoscopic cholecystectomy later today.
[2019-09-27] MEDS: PIPERACILLIN-TAZOBACTAM 3.375 GM in SODIUM CHLORIDE 0.9% 100 ML IVPB SCH ×2 (08:03→16:17)
[2019-09-27] MEDS: PANTOPRAZOLE 40 MG/10 ML VIAL IVP SCH (08:19)
[2019-09-27 09:33] LABS: Albumin 2.8 g/dL (3.5-5.0); Calcium 8.4 mg/dL (8.4-10.2); Potassium 3.9 mmol/L (3.5-5.1); Total Bilirubin 3.9 mg/dL (0.2-1.3); Total Protein 5.1 g/dL (6.3-8.2)
[2019-09-27 09:37] LABS: Basophils % (A) 0 %; Eosinophils # (A) 0.1 k/uL (0-0.7); Eosinophils % (A) 1 %; HCT 36.8 % (39.0-53.0); HGB 12.4 gm/dL (13.0-17.5); Lymphocytes # (A) 0.4 k/uL (1.0-4.8); Lymphocytes % (A) 3 %; MCHC 33.6 g/dL (31.0-37.0); MCV 86.2 fL (80.0-100.0); Mean Platelet Volume 7.5; Monocytes # (A) 0.2 k/uL (0-1.0); Monocytes % (A) 2 %; Neutrophils # (A) 10.5 k/uL (1.3-7.7); Neutrophils % (A) 93 %; Platelet Count 143 k/uL (150-450); RBC 4.26 m/uL (4.30-5.90); RDW 14.1 % (11.5-15.5); WBC 11.3 k/uL (3.8-10.6)
[2019-09-27] MEDS: LISINOPRIL 10 MG TAB PO SCH (09:48)
--- NOTE | 2019-09-27 10:09 | P.PN ---
Subjective HISTORY OF PRESENTING ILLNESS This is a pleasant 64-year-old male past medical history significant for dyslipidemia, diabetes mellitus and hypertension. He denies prior history of coronary artery disease and does not follow with a leadlighter for any reason. Patient was seen and examined resting comfortably laying flat in bed in no acute distress. He is status post ERCP. Scheduled for cholecystectomy this afternoon. He denies symptoms of chest discomfort, shortness of breath, dizziness or palpitations. Blood pressure 108/75 heart rate 88 afebrile maintaining oxygen saturation on room air. Laboratory data reviewed, WBC 11.3, hemoglobin 12.4, platelets 143, sodium 140, potassium 3.9, creatinine 1.39, AST 83, ALT 294, alkaline phosphatase 132. PHYSICAL EXAMINATION CONSTITUTIONAL: No apparent distress. HEENT: Head is normocephalic. Pupils are equal, round. Sclerae anicteric. Mucous membranes of the mouth are moist. No JVD. No carotid bruit. CHEST EXAMINATION: Lungs are clear to auscultation. No chest wall tenderness is noted on palpation or with deep breathing. HEART EXAMINATION: Regular rate and rhythm. S1, S2 heard. No murmurs, gallops or rub. EXTREMITIES: 2+ peripheral pulses, no lower extremity edema and no calf tenderness. ASSESSMENT Acute cholecystitis Leukocytosis Febrile illness Lactic acidosis on admission, resolved Hypertension Dyslipidemia Diabetes mellitus PLAN Stable for surgery from a cardiac perspective. Follow-up in the office with Dr. Farrell for outpatient stress testing in 2 weeks. We will continue to follow as needed, please call with further questions or concerns. Nurse Practitioner note has been reviewed, I agree with a documented findings and plan of care. Patient was seen and examined. Objective - Vital Signs Vital signs: Vital Signs Temp 97.0 F L 09/27/19 08:05 Pulse 88 09/27/19 09:47 Resp 16 09/27/19 08:05 BP 108/75 09/27/19 09:47 Pulse Ox 92 L 09/27/19 08:05 Intake & Output 09/26/19 09/27/19 09/27/19 18:59 06:59 18:59 Intake Total 300 Balance 300 Intake: IV 300 Other: Voiding Method Toilet Toilet # Voids 1 3 - Labs CBC & Chem 7: 09/27/19 09:00 09/27/19 09:00 Labs: Abnormal Lab Results - Last 24 Hours (Table) 12/05/19 12/05/19 12/05/19 Range/Units 09:44 09:44 12:02 WBC 12.3 H (3.8-10.6) k/uL RBC (4.30-5.90) m/uL Hgb 12.7 L (13.0-17.5) gm/dL Hct 37.2 L (39.0-53.0) % Plt Count 140 L (150-450) k/uL Neutrophils # 11.4 H (1.3-7.7) k/uL Lymphocytes # 0.4 L (1.0-4.8) k/uL Chloride (98-107) mmol/L Carbon Dioxide (22-30) mmol/L Creatinine 1.41 H (0.66-1.25) mg/dL Glucose 122 H (74-99) mg/dL POC Glucose (mg/dL) 124 H (75-99) mg/dL Total Bilirubin 4.7 H (0.2-1.3) mg/dL AST 318 H (17-59) U/L ALT 546 H (21-72) U/L Alkaline Phosphatase 156 H (38-126) U/L Total Protein 5.4 L (6.3-8.2) g/dL Albumin 3.1 L (3.5-5.0) g/dL 09/26/19 09/27/19 09/27/19 Range/Units 17:03 00:13 06:09 WBC (3.8-10.6) k/uL RBC (4.30-5.90) m/uL Hgb (13.0-17.5) gm/dL Hct (39.0-53.0) % Plt Count (150-450) k/uL Neutrophils # (1.3-7.7) k/uL Lymphocytes # (1.0-4.8) k/uL Chloride (98-107) mmol/L Carbon Dioxide (22-30) mmol/L Creatinine (0.66-1.25) mg/dL Glucose (74-99) mg/dL POC Glucose (mg/dL) 121 H 139 H 151 H (75-99) mg/dL Total Bilirubin (0.2-1.3) mg/dL AST (17-59) U/L ALT (21-72) U/L Alkaline Phosphatase (38-126) U/L Total Protein (6.3-8.2) g/dL Albumin (3.5-5.0) g/dL 09/27/19 09/27/19 Range/Units 09:00 09:00 WBC 11.3 H (3.8-10.6) k/uL RBC 4.26 L (4.30-5.90) m/uL Hgb 12.4 L (13.0-17.5) gm/dL Hct 36.8 L (39.0-53.0) % Plt Count 143 L (150-450) k/uL Neutrophils # (1.3-7.7) k/uL Lymphocytes # (1.0-4.8) k/uL Chloride 108 H (98-107) mmol/L Carbon Dioxide 21 L (22-30) mmol/L Creatinine 1.39 H (0.66-1.25) mg/dL Glucose 159 H (74-99) mg/dL POC Glucose (mg/dL) (75-99) mg/dL Total Bilirubin 3.9 H (0.2-1.3) mg/dL AST 83 H (17-59) U/L ALT 294 H (21-72) U/L Alkaline Phosphatase 132 H (38-126) U/L Total Protein 5.1 L (6.3-8.2) g/dL Albumin 2.8 L (3.5-5.0) g/dL Microbiology - Last 24 Hours (Table) 09/25/19 19:25 Blood Culture - Preliminary Blood No Growth after 24 hours
--- NOTE | 2019-09-27 10:29 | FL ---
EXAMINATION TYPE: FL ERCP biliary duct only DATE OF EXAM: 09/27/2019 CLINICAL HISTORY: Fluoroscopic documentation during ERCP TECHNIQUE: Fluoroscopy. COMPARISON: None. FINDINGS: Fluoroscopic guidance was provided during procedure performed by Dr. Farrell. A total of 2 minutes 19 seconds of fluoroscopic time was utilized during the procedure and 1 spot images was acqui red. IMPRESSION: As Above.
[2019-09-27 11:22] LABS: Toxic Granulation Present
[2019-09-27 11:24] LABS: Anisocytosis (M) Present; Poikilocytosis (M) Present
[2019-09-27 11:57] LABS: Glucose,Whole Blood 142 mg/dL (75-99)
[2019-09-27] MEDS ORDERED: INDOCYANINE GREEN 25 MG VIAL IV ONE (12:00)
[2019-09-27] MEDS: SODIUM CHLORIDE 0.9% 1,000 ML IV SCH (16:18)
--- NOTE | 2019-09-27 16:28 | P.HPADDEND ---
H&P Addendum H&P Addendum Date: 09/27/19 Earlier today, patient underwent ERCP with sphincterotomy secondary to common bile duct stones. Following this procedure, he feels much better. Benefits and risks of robotic cholecystectomy described.
[2019-09-27 16:50] LABS: Glucose,Whole Blood 124 mg/dL (75-99)
[2019-09-27] MEDS ORDERED: NEOSTIGMINE 1 MG/ML 10 ML VIAL ONE (21:02)
[2019-09-27] MEDS ORDERED: ROCURONIUM BROMIDE 10 MG/ML 10 ML VIAL IV ONE (21:02)
[2019-09-27] MEDS ORDERED: SUCCINYLCHOLINE CHLORIDE 100 MG/5 ML SYR IV ONE (21:02)
[2019-09-27] MEDS ORDERED: GLYCOPYRROLATE 0.2 MG/ML 2 ML VIAL ONE (21:02)
[2019-09-27] MEDS ORDERED: fentaNYL (PF) 50 MCG/ML 2 ML AMP ONE (21:02)
--- NOTE | 2019-09-27 21:02 | CONS ---
CONSULTATION REASON FOR CONSULT: Renal failure. HISTORY OF PRESENT ILLNESS: The patient is a 64-year-old male who was admitted to the hospital with complaints of abdominal pain, mainly in the right upper quadrant area. He was found to have cholelithiasis with acute cholecystitis. There was biliary dilatation noted and multiple common bile duct gallstones. Patient had ERCP done this morning with removal of the biliary duct stones and he is scheduled for cholecystectomy later on today. Patient denies any prior history of kidney diseases. He is noted to have a serum creatinine of 1.3 mg/dL on 09/25, 09/26 and 09/27/2019. We do not have any previous labs available for comparison. Patient did admit to taking Motrin prior to admission. He was maintained on BINDU inhibitors as well. Blood pressure has been around 128, but as low as 102 mmHg yesterday. Currently patient states he is voiding well. PAST MEDICAL HISTORY: Significant for hypertension, diabetes and depression. SOCIAL HISTORY: Social history is negative for smoking, drug abuse or alcohol abuse. MEDICATIONS: Medications prior to admission include: 1. Lipitor. 2. Zestril. 3. Zoloft. 4. Omeprazole. 5. Wellbutrin. 6. Glucophage. ALLERGIES: NONE. PHYSICAL EXAMINATION: Patient is comfortable, awake, not in any acute distress. Blood pressure was 108/75, heart rate 88 per minute. He is afebrile. EXAMINATION OF THE HEART: S1 and S2. EXAMINATION OF LUNGS: Bilateral breath sounds are heard. ABDOMEN: Soft, non-tender. Examination of lower extremities shows no evidence of edema. CASH MANAGEMENT ASSOCIATE exam is grossly intact. LAB: Hemoglobin 12.4, white cell count 11.3, sodium 140, potassium 3.9, chloride 108. BUN 17, creatinine 1.39. UA shows 1+ protein, blood small. ASSESSMENT: 1. Acute kidney injury, mostly prerenal as well as secondary to NSAIDs in the setting of low blood pressure. Patient is advised to avoid use of NSAIDs. I will also hold off on the BINDU inhibitors for now, as his blood pressure is low with systolic around 108 mmHg. Continue with the IV fluids and repeat labs in a.m. UA shows 1+ protein. This will need to be repeated down the road as outpatient. 2. Cholelithiasis, status post endoscopic retrograde cholangiopancreatography, removal of biliary duct stones and scheduled for cholecystectomy later on today. 3. Hypertension. 4. Diabetes. PLAN: Continue IV fluids. Avoid NSAIDs. Hold off on BINDU inhibitors for now, as blood pressure is low. Repeat labs in a.m. Thank you for this consultation. Will continue to follow the patient with you during his hospitalization. CHAMP / RULA: [id number] /
[2019-09-27] MEDS ORDERED: BUPIVACAIN-EPI 0.25%-1:200,000 30 ML VIAL SQ ONE (21:07)
[2019-09-27] MEDS ORDERED: SODIUM CHLORIDE 0.9% 1,000 ML IV ONE (21:08)
[2019-09-28] MEDS ORDERED: HYDROmorphone 1 MG/ML 1 ML SYRINGE IVP ONE ×3 (00:05→00:15)
[2019-09-28] MEDS ORDERED: SODIUM CHLORIDE 0.9% 2,000 ML IV ONE ×2 (00:08→20:42)
[2019-09-28] MEDS ORDERED: HYDROcodone/APAP 5-325MG 1 EACH TAB PO PRN (00:08)
[2019-09-28] MEDS ORDERED: HYDROmorphone 0.5 MG/0.5 ML SYRINGE IVP PRN (00:08)
[2019-09-28] MEDS ORDERED: ACETAMINOPHEN IV (For NPO) 1,000 MG in EMPTY BAG 1 BAG IVPB ONE (00:08)
[2019-09-28 00:12] LABS: Glucose,Whole Blood 147 mg/dL (75-99)
--- NOTE | 2019-09-28 00:28 | P.OP ---
Date of Procedure: 09/28/19 Description of Procedure: SURGEON: FALLON VALENCIA MD PREOPERATIVE DIAGNOSES: 1. Choledocholithiasis with sepsis 2. Symptomatic gallstones 3. Jaundice secondary to common bile duct obstruction 4. Status post ERCP 5. Diabetes type 2, uncontrolled 6. Depressive disorder 7. Acute kidney injury 8. Hypertensive heart disease 9. Hyperlipidemia 10. Gastroesophageal reflux disease POSTOPERATIVE DIAGNOSES: 1. Acute gangrenous cholecystitis with necrosis 2. Symptomatic gallstones 3. Jaundice secondary to common bile duct obstruction 4. Status post ERCP 5. Diabetes type 2, uncontrolled 6. Depressive disorder 7. Acute kidney injury 8. Hypertensive heart disease 9. Hyperlipidemia 10. Gastroesophageal reflux disease 11. Ileus 12. Choledocholithiasis with sepsis 13. Greater omentum adhesions to gallbladder OPERATION: 1. Robotic-assisted da Sharmin Xi laparoscopic lysis of adhesions of 1.5 hours, multiport with FIREFLY 2. Robotic-assisted da Sharmin Xi laparoscopic subtotal cholecystectomy, multiport with FIREFLY 3. Placement of round Mack-Mary drain, right upper quadrant ESTIMATED BLOOD LOSS: 50 mL. SPECIMENS REMOVED: 1. Gallbladder. 2. Anaerobic and aerobic cultures gallbladder fluid COMPLICATIONS: None. OPERATIVE FINDINGS: 1. Generalized diffuse ileus 2. Acute gangrenous cholecystitis with necrosis 3. Severe edematous changes of gallbladder infundibulum along the junction of the cystic duct and common bile duct 4. Subtotal cholecystectomy performed at infundibulum with 45 mm green and white robotic staple loads 5. Oversew of infundibulum 6. Indocyanine green test demonstrates no bile leak 7. Complete cystic duct obstruction confirmed with indocyanine green 8. Colonic diverticulosis 9. Gallbladder completely encased in omentum including severe adhesions adding complexity to the case 1.5 hours for extensive lysis of adhesions performed INDICATIONS: The patient is a 64-year-old male who presents with symptomatic gallstones with choledocholithiasis status post ERCP. He pesented acutely with sepsis. Surgical intervention with cholecystectomy was described at length including injury to the biliary tree, bleeding, infection, need for further surgery. Informed consent was obtained. Robotic assisted laparoscopic approach was described. Informed consent was obtained. DESCRIPTION OF PROCEDURE: Patient was brought to the operating room, placed in supine position. After general induction, the abdomen had been prepped and draped in standard sterile fashion. The robotic da Sharmin XI system was primed. After a timeout protocol was performed, the patient had been prepped and draped in standard sterile fashion. The patient was injected with indocyanine green. A 5 mm 0 degrees laparoscopic trocar entry was performed along the left upper quadrant. The abdomen insufflated to 15 mmHg pressure which was tolerated well. Diagnostic laparoscopy demonstrated no injury to bowel viscera or mesentery. Diffuse generalized ileus involving small bowel and colon was identified. Features of diverticulosis was also found along the colon. The gallbladder was completely obscured by the greater omentum including dense exudate along the peritoneum. Next, two 8 mm robotic ports were placed along the right upper abdomen. The camera 8-mm port was maintained along the epigastrium. Another 8 mm port was placed along the left upper abdominal wall after exchanging the 5 mm port. Please note that the ports were placed at least 10 to 15 cm away from the target anatomy of the gallbladder. The robot was docked along the left lateral abdomen. The patient was repositioned in reverse Trendelenburg position. Using a grasper for arm 3, a grasper for arm 4, including hook cautery for arm 1, the robotic system was docked and primed as described. Vessel sealer and staplers were available. Instruments were interchanged by the photo studio assistant including hook cautery, Bovie cautery and clip appliers. I had sat at the console. The entire gallbladder was encased in the greater omentum which was carefully dissected free using blunt dissection including hook cautery. As the entire gallbladder was obscured, a dome down technique was performed. Adhesions along the gallbladder was addressed using combination of sharp dissection including blunt dissection and vessel sealer. Extensive lysis of adhesions over 1.5 hrs was performed to avoid injury to the cystic structures including hepatic bed. The gallbladder fundus was retracted towards the dome of the liver. The cystic structures were completely obscured with edematous infundibulum and fatty tissue. The gallbladder was mobilized to the infundibulum. The port along the left upper quadrant was exchanged for a 12 mm port. Green and white 45 mm robotic staplers were used to divide the gallbladder at the infundibulum. Hemostasis was checked and found to be adequate. A round #19 drain was placed at the hepatic fossa and exited via the left lateral abdominal wall with a 2-0 nylon stitch and bulb suction. The robot was undocked. I re-scrubbed into the case. Using a 10 mm Endo Catch bag via the left upper quadrant incision, the specimen was removed from the abdominal cavity. All pneumoperitoneum instruments were evacuated from the abdominal cavity. The incisions were reapproximated using 4-0 Monocryl in an interrupted subcuticular fashion. Fascial defects were less than 8 mm in size. Please note along the trocar sites, local anesthetic was placed as a field block prior to insertion of all instruments. The skin was cleansed with dilute hydrogen peroxide. Liquid glue was applied to the skin. Optifoam dressing was placed along the left upper quadrant and KARL drain site. At the end of the procedure needle, sponge, and instrument count had been verified correct by the surgical assistant certified. The patient was transferred to postanesthesia care unit in stable condition. Console time 108 minutes
[2019-09-28] MEDS: SODIUM CHLORIDE 0.9% 1,000 ML IV SCH ×4 (01:08→20:42)
[2019-09-28 01:26] LABS: Glucose,Whole Blood 141 mg/dL (75-99)
[2019-09-28] MEDS: INSULIN ASPART (NovoLOG) 100 UNIT/ML VIAL SQ SCH ×4 (01:43→18:10)
[2019-09-28] MEDS: PIPERACILLIN-TAZOBACTAM 3.375 GM in SODIUM CHLORIDE 0.9% 100 ML IVPB SCH ×3 (05:03→20:42)
[2019-09-28] MEDS: METOCLOPRAMIDE 5 MG/ML 2 ML VIAL IVP SCH ×3 (06:26→17:32)
[2019-09-28 06:32] LABS: Glucose,Whole Blood 125 mg/dL (75-99)
[2019-09-28 06:52] LABS: Basophils % (A) 0 %; Eosinophils % (A) 0 %; HCT 35.8 % (39.0-53.0); HGB 11.5 gm/dL (13.0-17.5); Lymphocytes # (A) 0.3 k/uL (1.0-4.8); Lymphocytes % (A) 5 %; MCH 28.6 pg (25.0-35.0); MCHC 32.2 g/dL (31.0-37.0); MCV 89.1 fL (80.0-100.0); Mean Platelet Volume 7.7; Monocytes # (A) 0.2 k/uL (0-1.0); Monocytes % (A) 3 %; Neutrophils # (A) 5.4 k/uL (1.3-7.7); Neutrophils % (A) 90 %; Platelet Count 118 k/uL (150-450); RBC 4.02 m/uL (4.30-5.90); RDW 14.4 % (11.5-15.5); WBC 6.1 k/uL (3.8-10.6)
[2019-09-28 07:09] LABS: Albumin 2.4 g/dL (3.5-5.0); Potassium 4.4 mmol/L (3.5-5.1); Total Bilirubin 3.9 mg/dL (0.2-1.3); Total Protein 4.5 g/dL (6.3-8.2)
[2019-09-28] MEDS: TAMSULOSIN 0.4 MG CAP.ER.24H PO SCH (07:57)
[2019-09-28] MEDS: PANTOPRAZOLE 40 MG/10 ML VIAL IVP SCH (07:57)
[2019-09-28] MEDS: ENOXAPARIN 40 MG/0.4 ML SYRINGE SQ SCH (07:57)
--- NOTE | 2019-09-28 10:20 | PN ---
PROGRESS NOTE DATE OF DICTATION: September 28, 2019 Patient is a 64-year-old pleasant white male admitted to hospital with severe abdominal pain and acute cholecystitis. He was noted to have elevated LFTs and jaundice and hence underwent an ERCP yesterday morning that showed evidence of CBD stones. He had a biliary sphincterotomy and balloon stone extraction. He underwent laparoscopic cholecystectomy last night. The patient is doing better this morning. Abdominal pain has resolved. He still has some diffuse achiness in the abdomen. PHYSICAL EXAMINATION: He appears comfortable. No apparent distress. VITAL SIGNS: Stable. Blood pressure is 118/75, pulse rate is 90, temperature 97.9. HEENT examination unremarkable. Conjunctivae pink. Sclerae anicteric. Oral cavity no lesions. NECK: No JVD or lymph node enlargement. CHEST: Clear to auscultation. HEART: Regular rate and rhythm. ABDOMEN is slightly distended. There is a KARL drain noted. There was mild tenderness in the epigastric area. EXTREMITIES: No pedal edema. SKIN no rashes. NEURO: He is alert and oriented x3. No focal deficits. LABS: From today T-bilirubin is down to 3.9, AST and ALT are 51 and 190 respectively, alkaline phosphatase 134. WBC 6.1, hemoglobin 11.5, platelets are normal. IMPRESSION: 1. Acute cholecystitis/questionable ascending cholangitis with elevated LFTs, status post ERCP with CBD stone removal yesterday. Patient is status post laparoscopic cholecystectomy last night. Overall, he is doing much better. LFTs are gradually improving. RECOMMENDATIONS: 1. Continue with broad-spectrum antibiotics. 2. Start him on a clear liquid diet. 3. Repeat labs in the morning and will follow with you closely. Thank you for this consultation. MMODL / IJN: [id number] /
[2019-09-28 11:55] LABS: Glucose,Whole Blood 124 mg/dL (75-99)
--- NOTE | 2019-09-28 12:11 | P.PN ---
Subjective Progress Note Date: 09/28/19 Seen and examined for the follow-up of acute kidney injury. Had recent ERCP and cholecystectomy done. Urinary retention episodes with 600 ML's off urine via straight cath this morning. No nausea vomiting diarrhea. Objective - Vital Signs Vital signs: Vital Signs Temp 97.7 F 09/28/19 07:00 Pulse 90 09/28/19 07:00 Resp 17 09/28/19 07:00 BP 118/75 09/28/19 07:00 Pulse Ox 97 09/28/19 07:00 Intake & Output 09/27/19 09/28/19 09/28/19 18:59 06:59 18:59 Intake Total 300 1750 Output Total 115 825 Balance 300 1635 -825 Intake: IV 300 1750 Output: Drainage 65 Right Lower Abdomen 65 Urine 825 Straight 825 Estimated Blood Loss 50 Other: Voiding Method Toilet # Voids 1 - Exam No acute distress S1-S2 heard Lungs clear Abdomen soft No edema - Labs CBC & Chem 7: 09/28/19 06:33 09/28/19 06:33 Labs: Abnormal Lab Results - Last 24 Hours (Table) 09/27/19 09/28/19 09/28/19 Range/Units 16:48 00:03 01:14 RBC (4.30-5.90) m/uL Hgb (13.0-17.5) gm/dL Hct (39.0-53.0) % Plt Count (150-450) k/uL Lymphocytes # (1.0-4.8) k/uL Chloride (98-107) mmol/L BUN (9-20) mg/dL Creatinine (0.66-1.25) mg/dL Glucose (74-99) mg/dL POC Glucose (mg/dL) 124 H 147 H 141 H (75-99) mg/dL Calcium (8.4-10.2) mg/dL Total Bilirubin (0.2-1.3) mg/dL ALT (21-72) U/L Alkaline Phosphatase (38-126) U/L Total Protein (6.3-8.2) g/dL Albumin (3.5-5.0) g/dL 09/28/19 09/28/19 09/28/19 Range/Units 06:21 06:33 06:33 RBC 4.02 L (4.30-5.90) m/uL Hgb 11.5 L (13.0-17.5) gm/dL Hct 35.8 L (39.0-53.0) % Plt Count 118 L (150-450) k/uL Lymphocytes # 0.3 L (1.0-4.8) k/uL Chloride 112 H (98-107) mmol/L BUN 23 H (9-20) mg/dL Creatinine 1.82 H (0.66-1.25) mg/dL Glucose 125 H (74-99) mg/dL POC Glucose (mg/dL) 125 H (75-99) mg/dL Calcium 8.0 L (8.4-10.2) mg/dL Total Bilirubin 3.9 H (0.2-1.3) mg/dL ALT 190 H (21-72) U/L Alkaline Phosphatase 134 H (38-126) U/L Total Protein 4.5 L (6.3-8.2) g/dL Albumin 2.4 L (3.5-5.0) g/dL 09/28/19 Range/Units 11:43 RBC (4.30-5.90) m/uL Hgb (13.0-17.5) gm/dL Hct (39.0-53.0) % Plt Count (150-450) k/uL Lymphocytes # (1.0-4.8) k/uL Chloride (98-107) mmol/L BUN (9-20) mg/dL Creatinine (0.66-1.25) mg/dL Glucose (74-99) mg/dL POC Glucose (mg/dL) 124 H (75-99) mg/dL Calcium (8.4-10.2) mg/dL Total Bilirubin (0.2-1.3) mg/dL ALT (21-72) U/L Alkaline Phosphatase (38-126) U/L Total Protein (6.3-8.2) g/dL Albumin (3.5-5.0) g/dL Microbiology - Last 24 Hours (Table) 09/25/19 19:25 Blood Culture - Preliminary Blood No Growth after 48 hours Assessment and Plan Assessment: #1 nonoliguric acute kidney injury secondary to urinary retention/the renal process as well as NSAID use. Unknown baseline creatinine, admission creatinine was 1.3 MG per DL. #2 status post cholecystectomy. #3 urinary retention #4 suspected chronic kidney disease from diabetes #5 hypertension with chronic kidney disease #6 anemia with chronic kidney disease. Plan: #1 creatinine creep suspect secondary to retention. Continue IV fluids and if persistent retention plan Guzmán catheter. #2 avoid nephrotoxic agents and hypotensive episodes. #3 labs in the morning.
--- NOTE | 2019-09-28 13:26 | P.PN ---
Subjective Progress Note Date: 09/28/19 CHIEF COMPLAINT: Acute gangrenous cholecystitis with ascending cholangitis HISTORY OF PRESENT ILLNESS: The patient is a 64-year-old male who presented to the hospital with ascending cholangitis. She status post ERCP yesterday with removal of common bile duct stones. He status post cholecystectomy with features of ileus including acute gangrenous necrotic cholecystitis with subtotal cholecystectomy. His sister is at bedside. He is somnolent. Complains of dry mouth. His groggy. He does report appropriate post-incisional pain. No passage of flatus. ROS: No reports of nausea and vomiting. No bowel movements. No fevers or chills. No new chest pain. No productive sputum PHYSICAL EXAM: VITAL SIGNS: Reviewed CONSTITUTIONAL: Well developed and in no acute distress. EYES: Sclera icterus present. Extraocular movements grossly intact. HEAD, EARS, NOSE, THROAT: Dry buccal mucosa. Head is atraumatic, normocephalic. Hears conversational speech. No nasal drainage. RESPIRATORY: Non-labored respirations and equal bilateral excursions. CARDIOVASCULAR: Palpable 2+ radial pulses. ABDOMEN: Incisions clean dry and intact. Soft. No peritonitis. Minimal tenderness upper quadrant. Mild distention but improved. KARL serosanguineous and stripped. MUSCULOSKELETAL: No gross deformity of the lower extremities noted. No clubbing. No cyanosis. SKIN: Good skin turgor. Well perfused. NEUROLOGIC: Cranial nerves I through XII grossly intact. No focal or lateralizing signs. PSYCH: Appropriate affect. Alert and oriented to person, place and time. CLINICAL LABS: White blood cell count normal. LFTs improved. Total bilirubin still elevated. Creatinine elevated ASSESSMENT: 1. Acute gangrenous necrotic cholecystitis status post subtotal cholecystectomy 2. History of ascending cholangitis 3. Acute kidney injury PLAN: 1. He had severe infections which aerobic and anaerobic cultures of peritoneal fluid and gallbladder fluid was obtained 2. Continue full hospitalization secondary to this initial sepsis picture including gangrenous cholecystitis with history of ascending cholangitis 3. Consultation to infectious disease regarding antibiotic management pending microbiology results 4. Appreciate nephrology input regarding acute kidney injury present on admission Objective - Vital Signs Vital signs: Vital Signs Temp 97.7 F 09/28/19 07:00 Pulse 90 09/28/19 07:00 Resp 17 09/28/19 07:00 BP 118/75 09/28/19 07:00 Pulse Ox 97 09/28/19 07:00 Intake & Output 09/27/19 09/28/19 09/28/19 18:59 06:59 18:59 Intake Total 300 1750 Output Total 115 825 Balance 300 1635 -825 Intake: IV 300 1750 Output: Drainage 65 Right Lower Abdomen 65 Urine 825 Straight 825 Estimated Blood Loss 50 Other: Voiding Method Toilet # Voids 1 - Labs CBC & Chem 7: 09/28/19 06:33 09/28/19 06:33 Labs: Abnormal Lab Results - Last 24 Hours (Table) 09/27/19 09/28/19 09/28/19 Range/Units 16:48 00:03 01:14 RBC (4.30-5.90) m/uL Hgb (13.0-17.5) gm/dL Hct (39.0-53.0) % Plt Count (150-450) k/uL Lymphocytes # (1.0-4.8) k/uL Chloride (98-107) mmol/L BUN (9-20) mg/dL Creatinine (0.66-1.25) mg/dL Glucose (74-99) mg/dL POC Glucose (mg/dL) 124 H 147 H 141 H (75-99) mg/dL Calcium (8.4-10.2) mg/dL Total Bilirubin (0.2-1.3) mg/dL ALT (21-72) U/L Alkaline Phosphatase (38-126) U/L Total Protein (6.3-8.2) g/dL Albumin (3.5-5.0) g/dL 09/28/19 09/28/19 09/28/19 Range/Units 06:21 06:33 06:33 RBC 4.02 L (4.30-5.90) m/uL Hgb 11.5 L (13.0-17.5) gm/dL Hct 35.8 L (39.0-53.0) % Plt Count 118 L (150-450) k/uL Lymphocytes # 0.3 L (1.0-4.8) k/uL Chloride 112 H (98-107) mmol/L BUN 23 H (9-20) mg/dL Creatinine 1.82 H (0.66-1.25) mg/dL Glucose 125 H (74-99) mg/dL POC Glucose (mg/dL) 125 H (75-99) mg/dL Calcium 8.0 L (8.4-10.2) mg/dL Total Bilirubin 3.9 H (0.2-1.3) mg/dL ALT 190 H (21-72) U/L Alkaline Phosphatase 134 H (38-126) U/L Total Protein 4.5 L (6.3-8.2) g/dL Albumin 2.4 L (3.5-5.0) g/dL 09/28/19 Range/Units 11:43 RBC (4.30-5.90) m/uL Hgb (13.0-17.5) gm/dL Hct (39.0-53.0) % Plt Count (150-450) k/uL Lymphocytes # (1.0-4.8) k/uL Chloride (98-107) mmol/L BUN (9-20) mg/dL Creatinine (0.66-1.25) mg/dL Glucose (74-99) mg/dL POC Glucose (mg/dL) 124 H (75-99) mg/dL Calcium (8.4-10.2) mg/dL Total Bilirubin (0.2-1.3) mg/dL ALT (21-72) U/L Alkaline Phosphatase (38-126) U/L Total Protein (6.3-8.2) g/dL Albumin (3.5-5.0) g/dL Microbiology - Last 24 Hours (Table) 09/25/19 19:25 Blood Culture - Preliminary Blood No Growth after 48 hours Assessment and Plan (1) Sepsis Current Visit: Yes Status: Acute Code(s): A41.9 - SEPSIS, UNSPECIFIED ORGANISM SNOMED Code(s): 54895772 (2) Fever Current Visit: Yes Status: Acute Code(s): R50.9 - FEVER, UNSPECIFIED SNOMED Code(s): 584044207 (3) Acute cholecystitis due to biliary calculus Current Visit: Yes Status: Acute Code(s): K80.00 - CALCULUS OF GALLBLADDER W ACUTE CHOLECYST W/O OBSTRUCTION SNOMED Code(s): 03773203227768 (4) Diabetes type 2, uncontrolled Current Visit: Yes Status: Acute Code(s): E11.65 - TYPE 2 DIABETES MELLITUS WITH HYPERGLYCEMIA SNOMED Code(s): 343029856 (5) Hypertensive heart disease Current Visit: Yes Status: Acute Code(s): I11.9 - HYPERTENSIVE HEART DISEASE WITHOUT HEART FAILURE SNOMED Code(s): 79289129 (6) Depressive disorder Current Visit: Yes Status: Acute Code(s): F32.9 - MAJOR DEPRESSIVE DISORDER, SINGLE EPISODE, UNSPECIFIED SNOMED Code(s): 60742979 (7) Acute cholecystitis Current Visit: Yes Status: Acute Code(s): K81.0 - ACUTE CHOLECYSTITIS SNOMED Code(s): 85334468 (8) Hyperlipidemia associated with type 2 diabetes mellitus Current Visit: Yes Status: Acute Code(s): E11.69 - TYPE 2 DIABETES MELLITUS WITH OTHER SPECIFIED COMPLICATION; E78.5 - HYPERLIPIDEMIA, UNSPECIFIED SNOMED Code(s): 538637767012 (9) Cholangitis due to bile duct calculus with obstruction Current Visit: Yes Status: Acute Code(s): K80.31 - CALCULUS OF BILE DUCT W CHOLANGITIS, UNSP, WITH OBSTRUCTION SNOMED Code(s): 8527596146135376 (10) Gangrenous cholecystitis Current Visit: Yes Status: Acute Code(s): K81.0 - ACUTE CHOLECYSTITIS SNOMED Code(s): 68241981 (11) Ascending cholangitis Current Visit: Yes Status: Acute Code(s): K83.09 - OTHER CHOLANGITIS SNOMED Code(s): 40894067
[2019-09-28 17:57] LABS: Glucose,Whole Blood 129 mg/dL (75-99)
--- NOTE | 2019-09-28 23:20 | P.CONS ---
History of Present Illness - Reason for Consult Consult date: 09/28/19 Acute Gangrenous cholecystitis , antibiotics recomendation Requesting physician: Estefany Saenz - Chief Complaint abdominal pain x 1 day on presentation - History of Present Illness Patient is a 65-year-old male presenting to the ER at [facility] on 09/25/2019 with a chief complaint of epigastric/right upper quadrant abdominal pain of 1 day duration patient describes his pain to be more of a sharp nature and almost 70 8 out of 10 with no significant radiation associated nausea but no vomiting on presentation to hospital the patient had a CT of abdominal pelvis that was suspicious for acute cholecystitis with evidence of multiple CBD stone but no evidence of any CBD dilatation patient did have a fever to 10 currently 100 and did have elevated white count usually tachycardic,Surgery and GI services saw the patient patient is status post ERCP on 09/27/2019 with the sphincterotomy and removal of CBD stones subsequently patient was taken to the OR and is status post laparoscopic cholecystectomy with the patient was noticed to have a gangrenous cholecystitis but no evidence of any perforation patient has been on IV Zosyn infectious was consulted for further recommendation about antibiotic therapy. Review of Systems Positive point has been mentioned in HPI rest of the systems are negative Past Medical History Past Medical History: Diabetes Mellitus, Hypertension History of Any Multi-Drug Resistant Organisms: None Reported Past Surgical History: Hernia Repair Past Anesthesia/Blood Transfusion Reactions: No Reported Reaction Past Psychological History: Depression Smoking Status: Never smoker Past Alcohol Use History: None Reported Past Drug Use History: None Reported - Past Family History Mother Additional Family Medical History / Comment(s): brain tumer Medications and Allergies Home Medications Medication Instructions Recorded Confirmed Type Atorvastatin Calcium [Lipitor] 10 mg PO HS 09/25/19 09/25/19 History Lisinopril [Zestril] 10 mg PO DAILY 09/25/19 09/25/19 History Omeprazole 20 mg PO DAILY 09/25/19 09/25/19 History Sertraline [Zoloft] 100 mg PO DAILY 09/25/19 09/25/19 History buPROPion XL [Wellbutrin Xl] 150 mg PO AC-BRKFST 09/25/19 09/25/19 History metFORMIN HCL ER [Glucophage Xr] 1,000 mg PO AC-BID 09/25/19 09/25/19 History Allergies Allergy/AdvReac Type Severity Reaction Status Date / Time No Known Allergies Allergy Verified 09/25/19 20:46 Physical Exam Vitals: Vital Signs Temp Pulse Pulse Resp BP Pulse Ox 09/28/19 07:00 97.7 F 90 17 118/75 97 09/28/19 04:00 16 09/28/19 00:54 16 09/28/19 00:30 83 16 116/66 97 09/28/19 00:14 87 18 116/63 97 09/27/19 23:59 97.7 F 102 H 16 114/64 95 09/27/19 15:00 98.1 F 84 16 111/66 98 Intake and Output 09/27/19 09/28/19 09/28/19 22:59 06:59 14:59 Intake Total 1750 Output Total 115 825 Balance 1750 -115 -825 Intake: IV 1750 Output: Drainage 65 Right Lower Abdomen 65 Urine 825 Straight 825 Estimated Blood Loss 50 Other: Voiding Method Toilet GENERAL DESCRIPTION: Elderly male lying in bed, no distress. No tachypnea or accessory muscle of respiration use. HEENT: Shows Pallor , no scleral icterus. Oral mucous membrane is dry. NECK: Trachea central, no thyromegaly. LUNGS: Unlabored breathing. Clear to auscultation anteriorly. No wheeze or c rackle. HEART: S1, S2, regular rate and rhythm. ABDOMEN: Soft, mild distention and right upper quadrant tenderness , no guarding or rigidity EXTREMITIES: No edema of feet. SKIN: No rash, no masses palpable. NEUROLOGICAL: The patient is awake, alert, oriented x3, mood and affect normal Results CBC & Chem 7: 09/28/19 06:33 09/28/19 06:33 Labs: Abnormal Lab Results - Last 24 Hours (Table) 09/27/19 09/28/19 09/28/19 Range/Units 16:48 00:03 01:14 RBC (4.30-5.90) m/uL Hgb (13.0-17.5) gm/dL Hct (39.0-53.0) % Plt Count (150-450) k/uL Lymphocytes # (1.0-4.8) k/uL Chloride (98-107) mmol/L BUN (9-20) mg/dL Creatinine (0.66-1.25) mg/dL Glucose (74-99) mg/dL POC Glucose (mg/dL) 124 H 147 H 141 H (75-99) mg/dL Calcium (8.4-10.2) mg/dL Total Bilirubin (0.2-1.3) mg/dL ALT (21-72) U/L Alkaline Phosphatase (38-126) U/L Total Protein (6.3-8.2) g/dL Albumin (3.5-5.0) g/dL 09/28/19 09/28/19 09/28/19 Range/Units 06:21 06:33 06:33 RBC 4.02 L (4.30-5.90) m/uL Hgb 11.5 L (13.0-17.5) gm/dL Hct 35.8 L (39.0-53.0) % Plt Count 118 L (150-450) k/uL Lymphocytes # 0.3 L (1.0-4.8) k/uL Chloride 112 H (98-107) mmol/L BUN 23 H (9-20) mg/dL Creatinine 1.82 H (0.66-1.25) mg/dL Glucose 125 H (74-99) mg/dL POC Glucose (mg/dL) 125 H (75-99) mg/dL Calcium 8.0 L (8.4-10.2) mg/dL Total Bilirubin 3.9 H (0.2-1.3) mg/dL ALT 190 H (21-72) U/L Alkaline Phosphatase 134 H (38-126) U/L Total Protein 4.5 L (6.3-8.2) g/dL Albumin 2.4 L (3.5-5.0) g/dL 09/28/19 Range/Units 11:43 RBC (4.30-5.90) m/uL Hgb (13.0-17.5) gm/dL Hct (39.0-53.0) % Plt Count (150-450) k/uL Lymphocytes # (1.0-4.8) k/uL Chloride (98-107) mmol/L BUN (9-20) mg/dL Creatinine (0.66-1.25) mg/dL Glucose (74-99) mg/dL POC Glucose (mg/dL) 124 H (75-99) mg/dL Calcium (8.4-10.2) mg/dL Total Bilirubin (0.2-1.3) mg/dL ALT (21-72) U/L Alkaline Phosphatase (38-126) U/L Total Protein (6.3-8.2) g/dL Albumin (3.5-5.0) g/dL Microbiology - Last 24 Hours (Table) 09/25/19 19:25 Blood Culture - Preliminary Blood No Growth after 48 hours Assessment and Plan Assessment: 1-patient admitted to hospital with sepsis in this patient who did have a fever tachycardia elevated white count source is acute cholecystitis with CBD stone status post ERCP with sphincterotomy and removal of the stone followed by laparoscopic cholecystectomy with the patient was noticed to have acute illness cholestatic with no evidence of any perforation the likely organism and need to cover will be enteric gram-negative both aerobes and anaerobes (1) Gangrenous cholecystitis Current Visit: Yes Status: Acute Code(s): K81.0 - ACUTE CHOLECYSTITIS SNOMED Code(s): 35967321 (2) Sepsis Current Visit: Yes Status: Acute Code(s): A41.9 - SEPSIS, UNSPECIFIED ORGANISM SNOMED Code(s): 04035198 Plan: 1-Zosyn 3.375 g every 8 hours should provide adequate coverage will be continued while waiting for the culture to finalize 2-gentle IV fluid We will follow on clinical condition and cultures to further adjust medication if needed Thank you for this consultation we will follow the patient along with you Time with Patient: Greater than 30
[2019-09-29] MEDS: INSULIN ASPART (NovoLOG) 100 UNIT/ML VIAL SQ SCH ×4 (00:02→17:37)
[2019-09-29] MEDS: METOCLOPRAMIDE 5 MG/ML 2 ML VIAL IVP SCH ×3 (00:02→12:14)
[2019-09-29 00:13] LABS: Glucose,Whole Blood 111 mg/dL (75-99)
[2019-09-29] MEDS: PIPERACILLIN-TAZOBACTAM 3.375 GM in SODIUM CHLORIDE 0.9% 100 ML IVPB SCH ×3 (05:00→23:22)
[2019-09-29] MEDS: SODIUM CHLORIDE 0.9% 1,000 ML IV SCH ×2 (05:01→16:07)
[2019-09-29 06:02] LABS: Glucose,Whole Blood 121 mg/dL (75-99)
[2019-09-29 07:33] LABS: Basophils % (A) 0 %; Eosinophils # (A) 0.1 k/uL (0-0.7); Eosinophils % (A) 2 %; HCT 33.9 % (39.0-53.0); HGB 10.8 gm/dL (13.0-17.5); Hypochromasia Slight; Lymphocytes # (A) 0.5 k/uL (1.0-4.8); Lymphocytes % (A) 7 %; MCH 28.6 pg (25.0-35.0); MCV 89.6 fL (80.0-100.0); Mean Platelet Volume 8.7; Monocytes # (A) 0.2 k/uL (0-1.0); Monocytes % (A) 4 %; Neutrophils # (A) 5.9 k/uL (1.3-7.7); Neutrophils % (A) 86 %; Platelet Count 173 k/uL (150-450); RBC 3.78 m/uL (4.30-5.90); RDW 14.5 % (11.5-15.5); WBC 6.8 k/uL (3.8-10.6)
[2019-09-29] MEDS: PANTOPRAZOLE 40 MG/10 ML VIAL IVP SCH (07:38)
[2019-09-29] MEDS: TAMSULOSIN 0.4 MG CAP.ER.24H PO SCH (07:38)
[2019-09-29] MEDS: ENOXAPARIN 40 MG/0.4 ML SYRINGE SQ SCH (07:38)
[2019-09-29 07:43] LABS: Albumin 2.3 g/dL (3.5-5.0); Calcium 8.3 mg/dL (8.4-10.2); Phosphorus 2.7 mg/dL (2.5-4.5); Potassium 4.1 mmol/L (3.5-5.1); Total Bilirubin 1.9 mg/dL (0.2-1.3); Total Protein 4.5 g/dL (6.3-8.2)
--- NOTE | 2019-09-29 09:43 | P.PN ---
Subjective Progress Note Date: 09/29/19 Seen and examined for the follow-up of acute kidney injury. Had recent ERCP and cholecystectomy done. Guzmán catheter for recurrent urinary retention. No nausea vomiting diarrhea. Urine output of 1600 ML's in the last 24 hours. Objective - Vital Signs Vital signs: Vital Signs Temp 98.1 F 09/29/19 07:00 Pulse 108 H 09/29/19 07:00 Resp 16 09/29/19 07:00 BP 187/93 09/29/19 07:00 Pulse Ox 92 L 09/29/19 07:00 Intake & Output 09/28/19 09/29/19 09/29/19 18:59 06:59 18:59 Intake Total 830 Output Total 895 765 Balance -895 65 Intake: Oral 830 Output: Drainage 70 40 Right Lower Abdomen 70 40 Urine 825 725 Straight 825 Other: Voiding Method Toilet Toilet Indwelling Catheter # Voids 0 1 - Exam No acute distress S1-S2 heard Lungs clear Abdomen soft No edema - Labs CBC & Chem 7: 09/29/19 06:44 09/29/19 06:44 Labs: Abnormal Lab Results - Last 24 Hours (Table) 09/28/19 09/28/19 09/29/19 Range/Units 11:43 17:46 00:02 RBC (4.30-5.90) m/uL Hgb (13.0-17.5) gm/dL Hct (39.0-53.0) % Lymphocytes # (1.0-4.8) k/uL Chloride (98-107) mmol/L Carbon Dioxide (22-30) mmol/L BUN (9-20) mg/dL Creatinine (0.66-1.25) mg/dL Glucose (74-99) mg/dL POC Glucose (mg/dL) 124 H 129 H 111 H (75-99) mg/dL Calcium (8.4-10.2) mg/dL Total Bilirubin (0.2-1.3) mg/dL ALT (21-72) U/L Total Protein (6.3-8.2) g/dL Albumin (3.5-5.0) g/dL 09/29/19 09/29/19 09/29/19 Range/Units 05:50 06:44 06:44 RBC 3.78 L (4.30-5.90) m/uL Hgb 10.8 L (13.0-17.5) gm/dL Hct 33.9 L (39.0-53.0) % Lymphocytes # 0.5 L (1.0-4.8) k/uL Chloride 114 H (98-107) mmol/L Carbon Dioxide 19 L (22-30) mmol/L BUN 25 H (9-20) mg/dL Creatinine 1.82 H (0.66-1.25) mg/dL Glucose 121 H (74-99) mg/dL POC Glucose (mg/dL) 121 H (75-99) mg/dL Calcium 8.3 L (8.4-10.2) mg/dL Total Bilirubin 1.9 H (0.2-1.3) mg/dL ALT 107 H (21-72) U/L Total Protein 4.5 L (6.3-8.2) g/dL Albumin 2.3 L (3.5-5.0) g/dL Microbiology - Last 24 Hours (Table) 09/27/19 23:47 Gram Stain - Preliminary Abdomen Wound Culture - Preliminary 09/25/19 19:25 Blood Culture - Preliminary Blood No Growth after 72 hours 09/27/19 23:47 Anaerobic Culture - Preliminary Abdomen Assessment and Plan Assessment: #1 nonoliguric acute kidney injury secondary to urinary retention/the renal process as well as NSAID use. Unknown baseline creatinine, admission creatinine was 1.3 MG per DL. #2 status post cholecystectomy. #3 urinary retention #4 suspected chronic kidney disease from diabetes #5 hypertension with chronic kidney disease #6 anemia with chronic kidney disease. Plan: #1 creatinine stable Post Guzmán catheter monitor urine output. #2 avoid nephrotoxic agents and hypotensive episodes. #3 labs in the morning.
[2019-09-29] MEDS ORDERED: FUROSEMIDE 10 MG/ML 4 ML VIAL IV STA (10:48)
[2019-09-29] MEDS: SODIUM BICARBONATE TAB 650 MG TAB PO SCH ×2 (11:23→23:22)
[2019-09-29 11:56] LABS: Glucose,Whole Blood 157 mg/dL (75-99)
--- NOTE | 2019-09-29 11:58 | PN ---
PROGRESS NOTE DATE OF DICTATION: September 29, 2019 Patient is a 64-year-old pleasant white male admitted to hospital with abdominal pain, elevated LFTs and acute cholecystitis. He underwent ERCP with CBD stone removal 2 days ago. He also had laparoscopic cholecystectomy done yesterday. He is doing well. He has no abdominal pain, abdominal distention. No nausea, vomiting. On a regular diet, tolerating well but complains of decreased appetite. PHYSICAL EXAMINATION: He appears comfortable. No apparent distress. VITAL SIGNS: Stable. Blood pressure is 187/93, pulse rate 108, temperature 98.1. HEENT examination unremarkable. Conjunctivae pink. Sclerae anicteric. Oral cavity no lesions. NECK: No JVD or lymph node enlargement. CHEST: Clear to auscultation. HEART: Regular rate and rhythm. ABDOMEN: Soft, slightly distended with mild tenderness in the epigastric area. Rest of the abdomen is benign. Bowel sounds are positive. EXTREMITIES: No pedal edema. SKIN no rashes. NEUROLOGIC: Alert and oriented x3. No focal deficits. LABS: From today WBC 6.8, hemoglobin 10.8, platelets normal. Basic metabolic panel showed a T-bilirubin is down to 1.9, AST 124, ALT 107, alkaline phosphatase 126. IMPRESSION: 1. Abdominal pain with acute cholecystitis, status post gallbladder surgery 2 days ago. Patient doing well. 2. Elevated LFTs and jaundice secondary to common bile duct stone, status post ERCP with common bile duct stone removal 2 days ago. LFTs are gradually improving, they have almost normalized. Bilirubin today is 1.9. 3. Mild elevation of BUN and creatinine. Nephrology following the patient closely. RECOMMENDATION: 1. Continue with current management plan. 2. Continue with antibiotics. 3. Repeat labs in the morning. 4. We will sign off at this time. Thank you for this consultation. MMODL / IJN: [id number] /
--- NOTE | 2019-09-29 12:33 | XR ---
EXAMINATION TYPE: XR chest 2V DATE OF EXAM: 09/29/2019 HISTORY: congestion/cough. REFERENCE: Previous study dated 09/25/2019. FINDINGS: The heart is upper limits of normal in size. The lungs are clear. Pleural space are clear. IMPRESSION: BORDERLINE CARDIOMEGALY.
[2019-09-29 13:59] VITALS: BMI 26.7
--- NOTE | 2019-09-29 14:18 | P.PN ---
Subjective Progress Note Date: 09/29/19 CHIEF COMPLAINT: Acute gangrenous cholecystitis with ascending cholangitis HISTORY OF PRESENT ILLNESS: The patient is a 64-year-old male who presented to the hospital with ascending cholangitis including sepsis. He status post ERCP with removal of common bile duct stones and subtotal cholecystectomy for acute gangrenous necrotic cholecystitis. He reports no further pre-existing right upper quadrant abdominal pain other than new incisional pain which is to be expected. He is more comfortable today and is more alert. He is tolerating fluids. In fact he started to pass flatus today. He has less abdominal distention. He complains of dry mouth. Yesterday, he developed increased tachycardia with skipped beats and had an EKG assessment. His family is at bedside including sister. He is eager to start diet. Guzmán catheter was placed yesterday for persistent urinary retention. ROS: No reports of nausea and vomiting. No bowel movements. No fevers or chills. No new chest pain. No productive sputum PHYSICAL EXAM: VITAL SIGNS: Reviewed CONSTITUTIONAL: Well developed and in no acute distress. EYES: Sclera icterus present improved and mild. Extraocular movements grossly intact. HEAD, EARS, NOSE, THROAT: Head is atraumatic, normocephalic. Hears conversational speech. No nasal drainage. RESPIRATORY: Non-labored respirations and equal bilateral excursions. CARDIOVASCULAR: Palpable 2+ radial pulses. ABDOMEN: Incisions clean dry and intact. Soft. No peritonitis. KARL serosanguineous. MUSCULOSKELETAL: No gross deformity of the lower extremities noted. No clubbing. No cyanosis. SKIN: Good skin turgor. Well perfused. NEUROLOGIC: Cranial nerves I through XII grossly intact. No focal or lateralizing signs. PSYCH: Appropriate affect. Alert and oriented to person, place and time. CLINICAL LABS: White blood cell count normal. LFTs improved. Total bilirubin down from 3.9 to 1.9. Creatinine elevated and persistent 1.82 ASSESSMENT: 1. Acute gangrenous necrotic cholecystitis status post subtotal cholecystectomy 2. History of ascending cholangitis with sepsis 3. Acute kidney injury PLAN: 1. Currently cultures are pending for intra-abdominal fluid and from gangrenous cholecystitis 2. Upon further discussion with him and his family, he does confirm pre- existing kidney disease and was pending further workup with the last week prior to admission 3. We'll obtain 24 hour urine and keep Guzmán. 4. Also obtain ultrasound of the kidneys 5. I personally spoke to infectious disease specialist with his history of sepsis including ascending cholangitis and necrotizing cholecystitis. Will determine oral versus IV antibiotics for home. 6. Will advance diet as he is passing flatus 7. Home healthcare assessment 8. Additional consultants infectious disease and medicine for history of sepsis including generalized multiple comorbidities management Objective - Vital Signs Vital signs: Vital Signs Temp 98.1 F 09/29/19 07:00 Pulse 108 H 09/29/19 07:00 Resp 16 09/29/19 07:00 BP 187/93 09/29/19 07:00 Pulse Ox 92 L 09/29/19 07:00 Intake & Output 09/28/19 09/29/19 09/29/19 18:59 06:59 18:59 Intake Total 830 Output Total 752 371 8303 Balance -895 65 -1500 Weight 92.079 kg Intake: Oral 830 Output: Drainage 70 40 Right Lower Abdomen 70 40 Urine 048 629 8486 Straight 825 1500 Other: Voiding Method Toilet Toilet Indwelling Catheter # Voids 0 1 - Labs CBC & Chem 7: 09/29/19 06:44 09/29/19 06:44 Labs: Abnormal Lab Results - Last 24 Hours (Table) 09/28/19 09/29/19 09/29/19 Range/Units 17:46 00:02 05:50 RBC (4.30-5.90) m/uL Hgb (13.0-17.5) gm/dL Hct (39.0-53.0) % Lymphocytes # (1.0-4.8) k/uL Chloride (98-107) mmol/L Carbon Dioxide (22-30) mmol/L BUN (9-20) mg/dL Creatinine (0.66-1.25) mg/dL Glucose (74-99) mg/dL POC Glucose (mg/dL) 129 H 111 H 121 H (75-99) mg/dL Calcium (8.4-10.2) mg/dL Total Bilirubin (0.2-1.3) mg/dL ALT (21-72) U/L Total Protein (6.3-8.2) g/dL Albumin (3.5-5.0) g/dL 09/29/19 09/29/19 09/29/19 Range/Units 06:44 06:44 11:51 RBC 3.78 L (4.30-5.90) m/uL Hgb 10.8 L (13.0-17.5) gm/dL Hct 33.9 L (39.0-53.0) % Lymphocytes # 0.5 L (1.0-4.8) k/uL Chloride 114 H (98-107) mmol/L Carbon Dioxide 19 L (22-30) mmol/L BUN 25 H (9-20) mg/dL Creatinine 1.82 H (0.66-1.25) mg/dL Glucose 121 H (74-99) mg/dL POC Glucose (mg/dL) 157 H (75-99) mg/dL Calcium 8.3 L (8.4-10.2) mg/dL Total Bilirubin 1.9 H (0.2-1.3) mg/dL ALT 107 H (21-72) U/L Total Protein 4.5 L (6.3-8.2) g/dL Albumin 2.3 L (3.5-5.0) g/dL Microbiology - Last 24 Hours (Table) 09/27/19 23:47 Gram Stain - Preliminary Abdomen Wound Culture - Preliminary 09/25/19 19:25 Blood Culture - Preliminary Blood No Growth after 72 hours 09/27/19 23:47 Anaerobic Culture - Preliminary Abdomen Assessment and Plan (1) Sepsis Current Visit: Yes Status: Acute Code(s): A41.9 - SEPSIS, UNSPECIFIED ORGANISM SNOMED Code(s): 46801087 (2) Fever Current Visit: Yes Status: Acute Code(s): R50.9 - FEVER, UNSPECIFIED SNOMED Code(s): 305324630 (3) Acute cholecystitis due to biliary calculus Current Visit: Yes Status: Acute Code(s): K80.00 - CALCULUS OF GALLBLADDER W ACUTE CHOLECYST W/O OBSTRUCTION SNOMED Code(s): 63045906384006 (4) Diabetes type 2, uncontrolled Current Visit: Yes Status: Acute Code(s): E11.65 - TYPE 2 DIABETES MELLITUS WITH HYPERGLYCEMIA SNOMED Code(s): 864920466 (5) Hypertensive heart disease Current Visit: Yes Status: Acute Code(s): I11.9 - HYPERTENSIVE HEART DISEASE WITHOUT HEART FAILURE SNOMED Code(s): 14483422 (6) Depressive disorder Current Visit: Yes Status: Acute Code(s): F32.9 - MAJOR DEPRESSIVE DISORDER, SINGLE EPISODE, UNSPECIFIED SNOMED Code(s): 93613238 (7) Acute cholecystitis Current Visit: Yes Status: Acute Code(s): K81.0 - ACUTE CHOLECYSTITIS SNOMED Code(s): 99050748 (8) Hyperlipidemia associated with type 2 diabetes mellitus Current Visit: Yes Status: Acute Code(s): E11.69 - TYPE 2 DIABETES MELLITUS WITH OTHER SPECIFIED COMPLICATION; E78.5 - HYPERLIPIDEMIA, UNSPECIFIED SNOMED Code(s): 609715312485 (9) Cholangitis due to bile duct calculus with obstruction Current Visit: Yes Status: Acute Code(s): K80.31 - CALCULUS OF BILE DUCT W CHOLANGITIS, UNSP, WITH OBSTRUCTION SNOMED Code(s): 1085503982753252 (10) Gangrenous cholecystitis Current Visit: Yes Status: Acute Code(s): K81.0 - ACUTE CHOLECYSTITIS SNOMED Code(s): 42973324 (11) Ascending cholangitis Current Visit: Yes Status: Acute Code(s): K83.09 - OTHER CHOLANGITIS SNOMED Code(s): 03820579
[2019-09-29 17:33] LABS: Glucose,Whole Blood 121 mg/dL (75-99)
--- NOTE | 2019-09-29 18:25 | US ---
EXAMINATION TYPE: US kidneys/renal and bladder DATE OF EXAM: 09/29/2019 COMPARISON: None CLINICAL HISTORY: Kidney injury. EXAM MEASUREMENTS: Right Kidney: 10.1 x 5.1 x 5.8 cm Left Kidney: 11.8 x 5.6 x 5.2 cm Right Kidney: Hypoechoic upper pole renal lesion measures 1.3 x 1.3 x 1.5 cm, likely cyst. Cortical m edullary differentiation is maintained. Left Kidney: No hydronephrosis or masses seen. Cortical medullary differentiation is maintained. Bladder: not seen, patient has catheter Bilateral Jets seen: No There is no evidence for hydronephrosis at this point in time. No nephrolithiasis is seen. IMPRESSION: No hydronephrosis.
--- NOTE | 2019-09-29 23:00 | P.CONS ---
History of Present Illness - Reason for Consult Consult date: 09/29/19 Medical management - Chief Complaint Abdominal pain - History of Present Illness Patient is a 63-year-old male with a known history of hypertension, diabetes type 2 ohv-ypfdwia-luliftoyb and depression initially presented to hospital on 09/25/2019 with complaints of abdominal pain. Mainly right upper quadrant. Patient has been having abdominal pain on and off for the past 2 days prior to admission. CT of the abdomen pelvis showed acute cholecystitis and severe common bile duct gallstones noted with significant biliary regurgitation. Patient developed acute ascending cholangitis with hyperbilirubinemia and leukocytosis. Patient underwent ERCP on 09/26/2019 with removal of common bile duct stones. Patient had laparoscopic cholecystectomy for acute gangrenous necrotic cholecystitis on 09/28/2019.. Patient is also having worsening renal function with creatinine level I.8 to yesterday. Patient is currently on antibiotics in the form of Zosyn. Abdominal wound cultures are pending at this time. Echocardiogram obtained reveals preserved LV systolic function with ejection fraction 50-55%, moderate tricuspid regurgitation and moderate pulmonary hypertension with an RVSP of 48 mmHg. Medicine service was consulted for further evaluation and recommendations. Chest x-ray showed borderline cardiomegaly. Patient was given a dose of IV Lasix prior to that. Patient is currently more awake and tolerating liquid diet. Able to pass flatus. Care and plan was Discussed with the family at bedside in detail. Review of Systems Constitutional: Patient denies any fever or chills . No generalized weakness or weight loss. Abdomen: Abdominal pain. No nausea. No diarrhea.. Cardiovascular: Patient denies any chest pain or short of breath no palpitations. Respiratory: patient denied any cough is from production. Patient did have shortness of breath Neurologic: Patient denied any numbness or tingling headache. Musculoskeletal: Patient denies any complaints of joint swelling or deformity. Skin: Negative Psychiatric: Negative Endocrine: No heat or cold intolerance. No recent weight gain. Genitourinary: No dysuria or hematuria. All other 14 point ROS negative except the above Past Medical History Past Medical History: Diabetes Mellitus, Hypertension History of Any Multi-Drug Resistant Organisms: None Reported Past Surgical History: Hernia Repair Past Anesthesia/Blood Transfusion Reactions: No Reported Reaction Past Psychological History: Depression Smoking Status: Never smoker Past Alcohol Use History: None Reported Past Drug Use History: None Reported - Past Family History Mother Additional Family Medical History / Comment(s): brain tumer Medications and Allergies Home Medications Medication Instructions Recorded Confirmed Type Atorvastatin Calcium [Lipitor] 10 mg PO HS 09/25/19 09/25/19 History Lisinopril [Zestril] 10 mg PO DAILY 09/25/19 09/25/19 History Omeprazole 20 mg PO DAILY 09/25/19 09/25/19 History Sertraline [Zoloft] 100 mg PO DAILY 09/25/19 09/25/19 History buPROPion XL [Wellbutrin Xl] 150 mg PO AC-BRKFST 09/25/19 09/25/19 History metFORMIN HCL ER [Glucophage Xr] 1,000 mg PO AC-BID 09/25/19 09/25/19 History Allergies Allergy/AdvReac Type Severity Reaction Status Date / Time No Known Allergies Allergy Verified 09/25/19 20:46 Physical Exam Vitals: Vital Signs Temp Pulse Pulse Resp BP Pulse Ox 09/29/19 07:00 98.1 F 108 H 16 187/93 92 L 09/29/19 01:30 97.8 F 96 16 129/71 90 L 09/28/19 19:47 97.5 F L 114 H 16 112/72 91 L 09/28/19 15:00 98.3 F 114 H 18 148/84 89 L Intake and Output 09/28/19 09/29/19 09/29/19 22:59 06:59 14:59 Intake Total 240 590 Output Total 40 725 Balance 200 -135 Intake: Oral 240 590 Output: Drainage 40 Right Lower Abdomen 40 Urine 725 Other: Voiding Method Toilet Indwelling Catheter # Voids 1 1 PHYSICAL EXAMINATION: Patient is lying in the bed comfortably, no acute distress, awake alert and oriented.. HEENT: Normocephalic. Neck is supple. Pupils reactive. Nostrils clear. Oral cavity is moist. Ears reveal no drainage. Neck reveals no JVD, carotid bruits, or thyromegaly. CHEST EXAMINATION: Trachea is central. Symmetrical expansion. Bibasilar diminished sounds and crackles positive.. CARDIAC: Normal S1, S2 with no gallops. No murmurs ABDOMEN: Soft. Mild tenderness at the surgical site. Wound is intact. No drainage noted. Bowel sounds present. No organomegaly. No abdominal bruits. Extremities: reveal no edema. No clubbing or cyanosis Neurologically awake, alert, oriented x3 with well-coordinated movements. No focal deficits noted Skin: No rash or skin lesions. Psychiatric: Coperative. Nonsuicidal Musculoskeletal: No joint swelling or deformity. Normal range of motion. Results CBC & Chem 7: 09/29/19 06:44 09/29/19 06:44 Labs: Abnormal Lab Results - Last 24 Hours (Table) 09/28/19 09/29/19 09/29/19 Range/Units 17:46 00:02 05:50 RBC (4.30-5.90) m/uL Hgb (13.0-17.5) gm/dL Hct (39.0-53.0) % Lymphocytes # (1.0-4.8) k/uL Chloride (98-107) mmol/L Carbon Dioxide (22-30) mmol/L BUN (9-20) mg/dL Creatinine (0.66-1.25) mg/dL Glucose (74-99) mg/dL POC Glucose (mg/dL) 129 H 111 H 121 H (75-99) mg/dL Calcium (8.4-10.2) mg/dL Total Bilirubin (0.2-1.3) mg/dL ALT (21-72) U/L Total Protein (6.3-8.2) g/dL Albumin (3.5-5.0) g/dL 09/29/19 09/29/19 09/29/19 Range/Units 06:44 06:44 11:51 RBC 3.78 L (4.30-5.90) m/uL Hgb 10.8 L (13.0-17.5) gm/dL Hct 33.9 L (39.0-53.0) % Lymphocytes # 0.5 L (1.0-4.8) k/uL Chloride 114 H (98-107) mmol/L Carbon Dioxide 19 L (22-30) mmol/L BUN 25 H (9-20) mg/dL Creatinine 1.82 H (0.66-1.25) mg/dL Glucose 121 H (74-99) mg/dL POC Glucose (mg/dL) 157 H (75-99) mg/dL Calcium 8.3 L (8.4-10.2) mg/dL Total Bilirubin 1.9 H (0.2-1.3) mg/dL ALT 107 H (21-72) U/L Total Protein 4.5 L (6.3-8.2) g/dL Albumin 2.3 L (3.5-5.0) g/dL Microbiology - Last 24 Hours (Table) 09/27/19 23:47 Gram Stain - Preliminary Abdomen Wound Culture - Preliminary 09/25/19 19:25 Blood Culture - Preliminary Blood No Growth after 72 hours 09/27/19 23:47 Anaerobic Culture - Preliminary Abdomen Assessment and Plan Assessment: Elevated liver enzymes and hyperbilirubinemia secondary to common bile duct stone. Status post ERCP and removal on 09/26/2019. Liver enzymes and bilirubin level improving Acute gangrenous cholecystitis status post subtotal cholecystectomy on 09/28/2019 Sepsis secondary to acute ascending cholangitis. Acute kidney injury prerenal versus urinary retention. Creatinine 1.82, baseline around 1.3 on admission. Possible CK D stage III due to diabetic nephropathy Hypertension Diabetes type 2 [id number]-[id number]. Metformin will be on hold due to elevated creatinine level. Anxiety/depression DVT prophylaxis with Lovenox subcu. Plan: Patient will be continued on antibiotics in the form of Zosyn. Abdominal wound cultures pending currently. Liver enzymes and bilirubin level is trending down. Gentle hydration and avoid nephrotoxic medications. Patient is currently on Guzmán catheter due to urinary retention. Nephrology is following. Creatinine level is stable at 1.82 yesterday and today. Patient will be encouraged with incentive spirometry and ambulation. Tolerating oral diet and is being advanced to soft diet. PT OT. Metformin will be on hold due to elevated creatinine level greater than 1.5. Further recommendations based on the clinical course. Prognosis is guarded. Time with Patient: Greater than 30
--- NOTE | 2019-09-30 | PN ---
PROGRESS NOTE DATE OF SERVICE: 09/29/2019. REASON FOLLOWUP: Acute gangrenous cholecystitis with cholangitis. INTERVAL HISTORY: The patient is currently afebrile. The patient has been breathing comfortably. The patient denies having any chest pain or cough. Abdominal pain has improved. No further nausea, vomiting or any diarrhea. PHYSICAL EXAMINATION: Blood pressure is 128/63 with a pulse of 87, temperature 98.1. He is 94% on room air. General description is an elderly male up in the chair in no distress. Respiratory system: Unlabored breathing. Clear to auscultation anteriorly. HEART S1, S2. Regular rate and rhythm. Abdomen soft. No tenderness. LABS: Hemoglobin is 10.8, white count 6.8. BUN of 25, creatinine is 1.82. Abdominal cultures currently pending. DIAGNOSTIC IMPRESSION AND PLAN: Patient with acute gangrenous cholecystitis with ascending cholangitis, status post cholecystectomy and ERCP. Blood culture has been negative. Abdominal culture so far negative for any resistant pathogen. The patient is currently on Zosyn to continue. Hopefully to finish therapy with oral antibiotic on discharge. Continue supportive care. MMODL / IJN: [id number] /
[2019-09-30 00:15] LABS: Glucose,Whole Blood 178 mg/dL (75-99)
[2019-09-30] MEDS: INSULIN ASPART (NovoLOG) 100 UNIT/ML VIAL SQ SCH ×4 (00:39→17:47)
[2019-09-30] MEDS: PIPERACILLIN-TAZOBACTAM 3.375 GM in SODIUM CHLORIDE 0.9% 100 ML IVPB SCH ×3 (05:53→19:56)
[2019-09-30] MEDS: SODIUM CHLORIDE 0.9% 1,000 ML IV SCH ×3 (05:53→23:36)
[2019-09-30 06:31] LABS: Glucose,Whole Blood 139 mg/dL (75-99)
[2019-09-30 09:51] LABS: Basophils % (A) 0 %; Eosinophils # (A) 0.2 k/uL (0-0.7); Eosinophils % (A) 2 %; HCT 33.2 % (39.0-53.0); HGB 10.8 gm/dL (13.0-17.5); Lymphocytes # (A) 0.5 k/uL (1.0-4.8); Lymphocytes % (A) 5 %; MCH 28.5 pg (25.0-35.0); MCHC 32.4 g/dL (31.0-37.0); MCV 87.8 fL (80.0-100.0); Monocytes # (A) 0.4 k/uL (0-1.0); Monocytes % (A) 5 %; Neutrophils # (A) 7.9 k/uL (1.3-7.7); Neutrophils % (A) 87 %; Platelet Count 201 k/uL (150-450); RBC 3.78 m/uL (4.30-5.90); RDW 14.4 % (11.5-15.5); WBC 9.1 k/uL (3.8-10.6)
[2019-09-30] MEDS: SODIUM BICARBONATE TAB 650 MG TAB PO SCH (09:52)
[2019-09-30] MEDS: PANTOPRAZOLE 40 MG/10 ML VIAL IVP SCH (09:52)
[2019-09-30] MEDS: ENOXAPARIN 40 MG/0.4 ML SYRINGE SQ SCH (09:52)
[2019-09-30 09:59] LABS: Calcium 8.3 mg/dL (8.4-10.2); Potassium 3.1 mmol/L (3.5-5.1)
[2019-09-30] MEDS ORDERED: POTASSIUM CHLORIDE ER 20 MEQ TAB.ER PO STA (10:50)
[2019-09-30 11:32] LABS: Glucose,Whole Blood 184 mg/dL (75-99)
[2019-09-30] MEDS: POTASSIUM CHLORIDE ER 20 MEQ TAB.ER PO SCH ×3 (12:19→13:32)
--- NOTE | 2019-09-30 14:53 | P.PN ---
<Nora Up A - Last Filed: 09/30/19 14:44> Subjective Progress Note Date: 09/30/19 CHIEF COMPLAINT: Acute gangrenous cholecystitis with ascending cholangitis HISTORY OF PRESENT ILLNESS: Patient is s/p ERCP with removal of common bile duct stones. He is also status post cholecystectomy with features of ileus including acute gangrenous necrotic cholecystitis with subtotal cholecystectomy. Patient examined this morning. He is sitting up in the chair. He reports his pain is tolerable. Currently rating 4/10. Tolerating diet. Denies nausea or vomiting. Passing flatus. Denies BM. Wound cultures are in progress. W BC 9.1. Hemoglobin 10.8. PHYSICAL EXAM: VITAL SIGNS: Reviewed CONSTITUTIONAL: Well developed and in no acute distress. EYES: No sclera icterus present. Extraocular movements grossly intact. HEAD, EARS, NOSE, THROAT: Moist buccal mucosa. Head is atraumatic, normocephalic. Hears conversational speech. No nasal drainage. RESPIRATORY: Non-labored respirations and equal bilateral excursions. CARDIOVASCULAR: Palpable 2+ radial pulses. ABDOMEN: Soft. Appropriate surgical tenderness. KARL serosanguineous. Incisions clean dry and intact. MUSCULOSKELETAL: No gross deformity of the lower extremities noted. No clubbing. No cyanosis. SKIN: Good skin turgor. Well perfused. NEUROLOGIC: Cranial nerves I through XII grossly intact. No focal or lateralizing signs. PSYCH: Appropriate affect. Alert and oriented to person, place and time. ASSESSMENT: 1. Acute gangrenous necrotic cholecystitis status post subtotal cholecystectomy 2. History of ascending cholangitis 3. Acute kidney injury PLAN: Cultures of peritoneal fluid and gallbladder fluid are pending. Await results. I nfectious disease on consult. Continue antibiotics Continue booker catheter per nephrology. 24 hour urine currently in progress Add CMP to morning labs. Repeat in AM Nurse practitioner note has been reviewed by physician. Signing provider agrees with the documented findings, assessment, and plan of care. Objective - Vital Signs Vital signs: Vital Signs Temp 98.8 F 09/30/19 07:00 Pulse 88 09/30/19 08:25 Resp 16 09/30/19 08:25 BP 171/93 09/30/19 07:00 Pulse Ox 95 09/30/19 07:00 Intake & Output 09/29/19 09/30/19 09/30/19 18:59 06:59 18:59 Intake Total 200 200 Output Total 4000 1875 640 Balance -9539 -7378 -778 Weight 92.079 kg Intake: Oral 200 200 Output: Drainage 40 Right Lower Abdomen 40 Urine 4000 1875 600 Straight 1500 Other: Voiding Method Indwelling Catheter Indwelling Catheter Indwelling Catheter # Voids 1 - Labs CBC & Chem 7: 09/30/19 09:34 09/30/19 09:34 Labs: Abnormal Lab Results - Last 24 Hours (Table) 09/29/19 09/30/19 09/30/19 Range/Units 17:30 00:14 06:29 RBC (4.30-5.90) m/uL Hgb (13.0-17.5) gm/dL Hct (39.0-53.0) % Neutrophils # (1.3-7.7) k/uL Lymphocytes # (1.0-4.8) k/uL Potassium (3.5-5.1) mmol/L Chloride (98-107) mmol/L BUN (9-20) mg/dL Creatinine (0.66-1.25) mg/dL Glucose (74-99) mg/dL POC Glucose (mg/dL) 121 H 178 H 139 H (75-99) mg/dL Calcium (8.4-10.2) mg/dL 09/30/19 09/30/19 09/30/19 Range/Units 09:34 09:34 11:28 RBC 3.78 L (4.30-5.90) m/uL Hgb 10.8 L (13.0-17.5) gm/dL Hct 33.2 L (39.0-53.0) % Neutrophils # 7.9 H (1.3-7.7) k/uL Lymphocytes # 0.5 L (1.0-4.8) k/uL Potassium 3.1 L (3.5-5.1) mmol/L Chloride 108 H (98-107) mmol/L BUN 27 H (9-20) mg/dL Creatinine 1.82 H (0.66-1.25) mg/dL Glucose 166 H (74-99) mg/dL POC Glucose (mg/dL) 184 H (75-99) mg/dL Calcium 8.3 L (8.4-10.2) mg/dL Microbiology - Last 24 Hours (Table) 09/27/19 23:47 Gram Stain - Final Abdomen Wound Culture - Final 09/25/19 19:25 Blood Culture - Preliminary Blood No Growth after 96 hours <Estefany Saenz - Last Filed: 10/01/19 21:20> Subjective As above, patient clinically improving daily. We'll arrange for home health care if needed. Objective - Vital Signs Vital signs: Vital Signs Temp 98.2 F 10/01/19 19:39 Pulse 68 10/01/19 19:39 Resp 18 10/01/19 19:39 BP 152/85 10/01/19 19:39 Pulse Ox 94 L 10/01/19 19:39 Intake & Output 10/01/19 10/01/19 10/02/19 06:59 18:59 06:59 Intake Total 350 1400 Output Total 805 230 200 Balance -455 1170 -200 Intake: Intake, IV Titration 350 800 Amount Ampicillin-Sulbactam 3 gm 100 In Sodium Chloride 0.9% 100 ml @ 200 mls/hr IVPB Q6HR [facility] Rx#:[id number] Sodium Chloride 0.9% 1, 350 700 000 ml @ 100 mls/hr IV . Q10H [facility] Rx#:[id number] Oral 600 Output: Drainage 5 10 Right Lower Abdomen 5 10 Urine 800 220 200 Other: Voiding Method Indwelling Catheter Indwelling Catheter # Voids 1 - Labs CBC & Chem 7: 10/01/19 06:54 10/01/19 06:54 Labs: Abnormal Lab Results - Last 24 Hours (Table) 09/30/19 10/01/19 10/01/19 Range/Units 23:56 05:38 06:54 RBC (4.30-5.90) m/uL Hgb (13.0-17.5) gm/dL Hct (39.0-53.0) % Lymphocytes # (1.0-4.8) k/uL Chloride 110 H (98-107) mmol/L BUN 27 H (9-20) mg/dL Creatinine 1.58 H (0.66-1.25) mg/dL Glucose 161 H (74-99) mg/dL POC Glucose (mg/dL) 205 H 176 H (75-99) mg/dL Calcium 8.1 L (8.4-10.2) mg/dL Total Protein 4.5 L (6.3-8.2) g/dL Albumin 2.4 L (3.5-5.0) g/dL 10/01/19 10/01/19 10/01/19 Range/Units 06:54 11:54 17:23 RBC 3.71 L (4.30-5.90) m/uL Hgb 10.6 L (13.0-17.5) gm/dL Hct 32.6 L (39.0-53.0) % Lymphocytes # 0.6 L (1.0-4.8) k/uL Chloride (98-107) mmol/L BUN (9-20) mg/dL Creatinine (0.66-1.25) mg/dL Glucose (74-99) mg/dL POC Glucose (mg/dL) 155 H 167 H (75-99) mg/dL Calcium (8.4-10.2) mg/dL Total Protein (6.3-8.2) g/dL Albumin (3.5-5.0) g/dL Microbiology - Last 24 Hours (Table) 09/30/19 16:48 Gram Stain - Preliminary Peritoneal Fluid Body Fluid Culture - Preliminary 09/27/19 23:47 Anaerobic Culture - Final Abdomen Clostridium perfringens 09/25/19 19:25 Blood Culture - Preliminary Blood No Growth after 120 hours Assessment and Plan (1) Sepsis Status: Acute Code(s): A41.9 - SEPSIS, UNSPECIFIED ORGANISM SNOMED Code(s): 00679472 (2) Fever Status: Acute Code(s): R50.9 - FEVER, UNSPECIFIED SNOMED Code(s): 293672569 (3) Acute cholecystitis due to biliary calculus Status: Acute Code(s): K80.00 - CALCULUS OF GALLBLADDER W ACUTE CHOLECYST W/O OBSTRUCTION SNOMED Code(s): 08260696562723 (4) Diabetes type 2, uncontrolled Status: Acute Code(s): E11.65 - TYPE 2 DIABETES MELLITUS WITH HYPERGLYCEMIA SNOMED Code(s): 770777533 (5) Hypertensive heart disease Status: Acute Code(s): I11.9 - HYPERTENSIVE HEART DISEASE WITHOUT HEART FAILURE SNOMED Code(s): 95385632 (6) Depressive disorder Status: Acute Code(s): F32.9 - MAJOR DEPRESSIVE DISORDER, SINGLE EPISODE, UNSPECIFIED SNOMED Code(s): 19098755 (7) Acute cholecystitis Status: Acute Code(s): K81.0 - ACUTE CHOLECYSTITIS SNOMED Code(s): 23671690 (8) Hyperlipidemia associated with type 2 diabetes mellitus Status: Acute Code(s): E11.69 - TYPE 2 DIABETES MELLITUS WITH OTHER SPECIFIED COMPLICATION; E78.5 - HYPERLIPIDEMIA, UNSPECIFIED SNOMED Code(s): 465934184713 (9) Cholangitis due to bile duct calculus with obstruction Status: Acute Code(s): K80.31 - CALCULUS OF BILE DUCT W CHOLANGITIS, UNSP, WITH OBSTRUCTION SNOMED Code(s): 2830882336468950 (10) Gangrenous cholecystitis Status: Acute Code(s): K81.0 - ACUTE CHOLECYSTITIS SNOMED Code(s): 02463750 (11) Ascending cholangitis Status: Acute Code(s): K83.09 - OTHER CHOLANGITIS SNOMED Code(s): 59795361
--- NOTE | 2019-09-30 15:55 | P.PN ---
Subjective Progress Note Date: 09/30/19 Principal diagnosis: Patient is a 63-year-old male with a known history of hypertension, diabetes type 2 fqy-tvwfvxq-ffjiwltlv and depression initially presented to hospital on 09/25/2019 with complaints of abdominal pain. Mainly right upper quadrant. Patient has been having abdominal pain on and off for the past 2 days prior to admission. CT of the abdomen pelvis showed acute cholecystitis and severe common bile duct gallstones noted with significant biliary regurgitation. Patient developed acute ascending cholangitis with hyperbilirubinemia and leukocytosis. Patient underwent ERCP on 09/26/2019 with removal of common bile duct stones. Patient had laparoscopic cholecystectomy for acute gangrenous necrotic cholecystitis on 09/28/2019.. Patient is also having worsening renal function with creatinine level I.8 to yesterday. Patient is currently on antibiotics in the form of Zosyn. Abdominal wound cultures are pending at this time. Echocardiogram obtained reveals preserved LV systolic function with ejection fraction 50-55%, moderate tricuspid regurgitation and moderate pulmonary hypertension with an RVSP of 48 mmHg. Medicine service was consulted for further evaluation and recommendations. Chest x-ray showed borderline cardiomegaly. Patient was given a dose of IV Lasix prior to that. Patient is currently more awake and tolerating liquid diet. Able to pass flatus. Care and plan was Discussed with the family at bedside in detail. 09/30/2019 Patient is lying flat in bed in no acute distress with family at the bedside. No acute overnight issues. Patient is reporting mild abdominal discomfort but states that it is improved and is being managed at this time. Patient reports that he is passing gas and denies any bowel movements at this time. Wound cultures are still pending. Patient is to continue with an indwelling catheter at this time as nephrology is following and monitoring 24-hour urine. May remove Guzmán tomorrow and will closely monitor intake and output and assess for urinary retention. Will repeat a.m. labs. Will continue to follow along closely with surgery. Objective - Vital Signs Vital signs: Vital Signs Temp 98.7 F 09/30/19 14:48 Pulse 76 09/30/19 14:48 Resp 16 09/30/19 14:48 BP 129/76 09/30/19 14:48 Pulse Ox 93 L 09/30/19 14:48 Intake & Output 09/29/19 09/30/19 09/30/19 18:59 06:59 18:59 Intake Total 200 200 Output Total 4000 1875 640 Balance -2794 -1675 -907 Weight 92.079 kg Intake: Oral 200 200 Output: Drainage 40 Right Lower Abdomen 40 Urine 4000 1875 600 Straight 1500 Other: Voiding Method Indwelling Catheter Indwelling Catheter Indwelling Catheter # Voids 1 - Exam Patient is lying in the bed comfortably, no acute distress, awake alert and oriented.. HEENT: Normocephalic. Neck is supple. Pupils reactive. Nostrils clear. Oral cavity is moist. Ears reveal no drainage. Neck reveals no JVD, carotid bruits, or thyromegaly. CHEST EXAMINATION: Trachea is central. Symmetrical expansion. Bibasilar dimi nished sounds and crackles positive.. CARDIAC: Normal S1, S2 with no gallops. No murmurs ABDOMEN: Soft. Mild tenderness at the surgical site. Wound is intact. No drainage noted. Bowel sounds present. No organomegaly. No abdominal bruits. Extremities: reveal no edema. No clubbing or cyanosis Neurologically awake, alert, oriented x3 with well-coordinated movements. No focal deficits noted Skin: No rash or skin lesions. Psychiatric: Cooperative. Non-suicidal Musculoskeletal: No joint swelling or deformity. Normal range of motion. - Labs CBC & Chem 7: 09/30/19 09:34 09/30/19 09:34 Labs: Abnormal Lab Results - Last 24 Hours (Table) 09/29/19 09/30/19 09/30/19 Range/Units 17:30 00:14 06:29 RBC (4.30-5.90) m/uL Hgb (13.0-17.5) gm/dL Hct (39.0-53.0) % Neutrophils # (1.3-7.7) k/uL Lymphocytes # (1.0-4.8) k/uL Potassium (3.5-5.1) mmol/L Chloride (98-107) mmol/L BUN (9-20) mg/dL Creatinine (0.66-1.25) mg/dL Glucose (74-99) mg/dL POC Glucose (mg/dL) 121 H 178 H 139 H (75-99) mg/dL Calcium (8.4-10.2) mg/dL 09/30/19 09/30/19 09/30/19 Range/Units 09:34 09:34 11:28 RBC 3.78 L (4.30-5.90) m/uL Hgb 10.8 L (13.0-17.5) gm/dL Hct 33.2 L (39.0-53.0) % Neutrophils # 7.9 H (1.3-7.7) k/uL Lymphocytes # 0.5 L (1.0-4.8) k/uL Potassium 3.1 L (3.5-5.1) mmol/L Chloride 108 H (98-107) mmol/L BUN 27 H (9-20) mg/dL Creatinine 1.82 H (0.66-1.25) mg/dL Glucose 166 H (74-99) mg/dL POC Glucose (mg/dL) 184 H (75-99) mg/dL Calcium 8.3 L (8.4-10.2) mg/dL Microbiology - Last 24 Hours (Table) 09/27/19 23:47 Gram Stain - Final Abdomen Wound Culture - Final 09/25/19 19:25 Blood Culture - Preliminary Blood No Growth after 96 hours Assessment and Plan Assessment: Elevated liver enzymes and hyperbilirubinemia secondary to common bile duct stone. Status post ERCP and removal on 09/26/2019. Liver enzymes and bilirubin level improving Acute gangrenous cholecystitis status post subtotal cholecystectomy on 09/28/2019 Hypokalemia: Potassium is 3.1 and currently being replaced. will repeat a.m. labs. Sepsis secondary to acute ascending cholangitis. Acute kidney injury prerenal versus urinary retention. Creatinine 1.82, baseline around 1.3 on admission. Today's creatinine is 1.82 again today Possible CK D stage III due to diabetic nephropathy Hypertension Diabetes type 2 kgh-qnwcyuq-spfsifiqt. Metformin will be on hold due to elevated creatinine level. Anxiety/depression DVT prophylaxis with Lovenox subcu. Plan: Patient will be continued on antibiotics in the form of Zosyn. Abdominal wound cultures pending currently. Liver enzymes and bilirubin level is trending down. Gentle hydration and avoid nephrotoxic medications. Patient is currently with Guzmán catheter due to urinary retention. Nephrology is following. Creatinine level is stable at 1.82 yesterday and today. Patient will be encouraged with incentive spirometry and ambulation. Tolerating oral diet and is being advanced to soft diet. PT OT. Metformin will be on hold due to elevated creatinine level greater than 1.5. Further recommendations based on the clinical course. Prognosis is guarded.
[2019-09-30 17:02] LABS: Glucose,Whole Blood 121 mg/dL (75-99)
--- NOTE | 2019-09-30 18:43 | PN ---
PROGRESS NOTE The patient is seen for followup for acute kidney injury which was secondary to NSAIDs, some degree of prerenal state as well as urine retention. Serum creatinine is currently staying at about 1.8 for the last 3 days. Patient has an indwelling Guzmán catheter with good urine output. PHYSICAL EXAMINATION: On examination today, blood pressure was 171/93, heart rate 89 per minute. He is afebrile. Blood pressure later on today was 129/76. Examination of the heart S1, S2. Examination of the lungs, bilateral breath sounds are heard. ABDOMEN: Soft. No significant tenderness noted. [employer]ICIAN MA[employer]GER exam grossly intact. Examination of lower extremities shows no significant edema. LABS: Sodium 141, potassium 3.1, chloride 108 BUN 27, creatinine 1.8, hemoglobin 10.8 g/dL. ASSESSMENT: 1. Acute kidney injury acute tubular necrosis as well as history of urine retention currently with indwelling Guzmán catheter. Renal function is fairly stable. Blood pressure is not low. The patient is not on any nephrotoxic medications. The NSAIDs have been discontinued. He is maintained on IV fluids which I will continue for now. 2. Metabolic acidosis maintained on oral sodium bicarb. This has improved. I will decrease the bicarb. 3. Hypokalemia secondary to decreased oral intake. We will replace. 4. Status post subtotal cholecystectomy for gangrenous bladder. 5. Cholelithiasis with common bile duct obstruction status post ERCP. PLAN: Continue IV fluids. Replace potassium. Repeat labs in a.m. decrease sodium bicarb. MMODL / IJN: [id number] /
[2019-09-30 20:32] LABS: Creatinine 24 Hour,Urine 1630.1 mg/24hr (1000.0-2000.0)
[2019-09-30 21:17] LABS: Albumin 2.5 g/dL (3.5-5.0); Total Bilirubin 1.4 mg/dL (0.2-1.3); Total Protein 4.5 g/dL (6.3-8.2)
[2019-09-30 23:58] LABS: Glucose,Whole Blood 205 mg/dL (75-99)
[2019-10-01] MEDS: INSULIN ASPART (NovoLOG) 100 UNIT/ML VIAL SQ SCH ×4 (00:03→18:09)
--- NOTE | 2019-10-01 00:04 | PN ---
PROGRESS NOTE DATE OF SERVICE: 09/30/2019 REASON FOR FOLLOWUP: Acute gangrenous cholecystitis and ascending cholangitis. INTERVAL HISTORY: The patient is currently afebrile. The patient has been breathing comfortably. The patient right upper quadrant abdominal pain is currently improved. The patient denies having any nausea, no vomiting. No chest pain, shortness of breath or cough and no diarrhea. PHYSICAL EXAMINATION: Blood pressure is 129/76 with a pulse of 73, temperature 98.7. He is 93% on room air. General description is an elderly male lying in bed in no distress. Respiratory system: Unlabored breathing. Clear to auscultation anteriorly. Heart S1, S2. Regular rate and rhythm. ABDOMEN: Soft, no tenderness. EXTREMITIES: No edema of the feet. LABS: Hemoglobin is 10.8, white count 9.1 with a BUN of 27, creatinine is 1.82. DIAGNOSTIC IMPRESSION AND PLAN: Patient with acute severe gangrenous cholecystitis with ascending cholangitis status post ERCP and cholecystectomy. The patient's abdominal culture has been negative so far. The patient is covered with Zosyn with plan to finish therapy with oral antibiotic as no resistant organism has been grown. Family was at the bedside. Their questions and concerns were answered. MMODL / IJN: [id number] /
[2019-10-01 05:40] LABS: Glucose,Whole Blood 176 mg/dL (75-99)
[2019-10-01] MEDS: PIPERACILLIN-TAZOBACTAM 3.375 GM in SODIUM CHLORIDE 0.9% 100 ML IVPB SCH (05:41)
[2019-10-01] MEDS ORDERED: PANTOPRAZOLE 40 MG TABLET PO SCH (07:30)
[2019-10-01 07:34] LABS: Basophils % (A) 0 %; Eosinophils # (A) 0.1 k/uL (0-0.7); Eosinophils % (A) 2 %; HCT 32.6 % (39.0-53.0); HGB 10.6 gm/dL (13.0-17.5); Lymphocytes # (A) 0.6 k/uL (1.0-4.8); Lymphocytes % (A) 9 %; MCH 28.7 pg (25.0-35.0); MCHC 32.6 g/dL (31.0-37.0); Mean Platelet Volume 8.3; Monocytes # (A) 0.4 k/uL (0-1.0); Monocytes % (A) 5 %; Neutrophils # (A) 6.2 k/uL (1.3-7.7); Neutrophils % (A) 83 %; Platelet Count 202 k/uL (150-450); RBC 3.71 m/uL (4.30-5.90); RDW 14.5 % (11.5-15.5); WBC 7.5 k/uL (3.8-10.6)
[2019-10-01 07:40] LABS: Albumin 2.4 g/dL (3.5-5.0); Calcium 8.1 mg/dL (8.4-10.2); Potassium 3.8 mmol/L (3.5-5.1); Total Protein 4.5 g/dL (6.3-8.2)
[2019-10-01] MEDS: ENOXAPARIN 40 MG/0.4 ML SYRINGE SQ SCH (08:20)
[2019-10-01] MEDS: ACETAMINOPHEN TAB 325 MG TAB PO PRN ×2 (08:20→18:09)
[2019-10-01] MEDS ORDERED: SODIUM BICARBONATE TAB 650 MG TAB PO SCH (09:00)
--- NOTE | 2019-10-01 10:43 | P.PN ---
Subjective Progress Note Date: 10/01/19 Principal diagnosis: Patient is a 63-year-old male with a known history of hypertension, diabetes type 2 [id number] and depression initially presented to hospital on 09/25/2019 with complaints of abdominal pain. Mainly right upper quadrant. Patient has been having abdominal pain on and off for the past 2 days prior to admission. CT of the abdomen pelvis showed acute cholecystitis and severe common bile duct gallstones noted with significant biliary regurgitation. Patient developed acute ascending cholangitis with hyperbilirubinemia and leukocytosis. Patient underwent ERCP on 09/26/2019 with removal of common bile duct stones. Patient had laparoscopic cholecystectomy for acute gangrenous necrotic cholecystitis on 09/28/2019.. Patient is also having worsening renal function with creatinine level I.8 to yesterday. Patient is currently on antibiotics in the form of Zosyn. Abdominal wound cultures are pending at this time. Echocardiogram obtained reveals preserved LV systolic function with ejection fraction 50-55%, moderate tricuspid regurgitation and moderate pulmonary hypertension with an RVSP of 48 mmHg. Medicine service was consulted for further evaluation and recommendations. Chest x-ray showed borderline cardiomegaly. Patient was given a dose of IV Lasix prior to that. Patient is currently more awake and tolerating liquid diet. Able to pass flatus. Care and plan was Discussed with the family at bedside in detail. 09/30/2019 Patient is lying flat in bed in no acute distress with family at the bedside. No acute overnight issues. Patient is reporting mild abdominal discomfort but states that it is improved and is being managed at this time. Patient reports that he is passing gas and denies any bowel movements at this time. Wound cultures are still pending. Patient is to continue with an indwelling catheter at this time as nephrology is following and monitoring 24-hour urine. May remove Guzmán tomorrow and will closely monitor intake and output and assess for urinary retention. Will repeat a.m. labs. Will continue to follow along closely with surgery. 10/01/2019 Patient is sitting up in the chair in no acute distress with no acute overnight issues. 24-hour urine testing has finished and Guzmán catheter is being removed at this time. Will continue to monitor intake and output and follow closely. Currently patient is passing gas but no reports of a bowel movement at this time. Nephrology is following closely. Repeat creatinine today is 1.58 which is down from 1.82 yesterday. WBC is 7.5. Patient will continue IV antibiotics in the form of Zosyn at this time. Objective - Vital Signs Vital signs: Vital Signs Temp 97.9 F 10/01/19 07:00 Pulse 78 10/01/19 07:34 Resp 16 10/01/19 07:34 BP 152/81 10/01/19 07:00 Pulse Ox 97 10/01/19 07:00 Intake & Output 09/30/19 10/01/19 10/01/19 18:59 06:59 18:59 Intake Total 750 350 Output Total 1250 805 Balance -500 -455 Intake: Intake, IV Titration 200 350 Amount Piperacillin-Tazobactam 3 200 .375 gm In Sodium Chloride 0.9% 100 ml @ 25 mls/hr IVPB Q8H [facility] Rx#: [id number] Sodium Chloride 0.9% 1, 350 000 ml @ 100 mls/hr IV . Q10H [facility] Rx#:[id number] Oral 550 Output: Drainage 50 5 Right Lower Abdomen 50 5 Urine 1200 800 Other: Voiding Method Indwelling Catheter Indwelling Catheter Indwelling Catheter # Voids 1 - Exam Patient is sitting up in the chair comfortably, no acute distress, awake alert a nd oriented.. HEENT: Normocephalic. Neck is supple. Pupils reactive. Nostrils clear. Oral cavity is moist. Ears reveal no drainage. Neck reveals no JVD, carotid bruits, or thyromegaly. CHEST EXAMINATION: Trachea is central. Symmetrical expansion. Bibasilar diminished sounds at the bases with no wheezes or crackles noted and CARDIAC: Normal S1, S2 with no gallops. No murmurs ABDOMEN: Soft. Mild tenderness at the surgical site. Wound is intact. No drainage noted. Improved tenderness from yesterday. Bowel sounds present. No organomegaly. No abdominal bruits. Extremities: reveal no edema. No clubbing or cyanosis Neurologically awake, alert, oriented x3 with well-coordinated movements. No focal deficits noted Skin: No rash or skin lesions. Psychiatric: Cooperative. Non-suicidal Musculoskeletal: No joint swelling or deformity. Normal range of motion. - Labs CBC & Chem 7: 10/01/19 06:54 10/01/19 06:54 Labs: Abnormal Lab Results - Last 24 Hours (Table) 09/30/19 09/30/1909/30/19 Range/Units 09:34 11:28 16:59 RBC (4.30-5.90) m/uL Hgb (13.0-17.5) gm/dL Hct (39.0-53.0) % Lymphocytes # (1.0-4.8) k/uL Potassium 3.1 L (3.5-5.1) mmol/L Chloride 108 H (98-107) mmol/L BUN 27 H (9-20) mg/dL Creatinine 1.82 H (0.66-1.25) mg/dL Glucose 166 H (74-99) mg/dL POC Glucose (mg/dL) 184 H 121 H (75-99) mg/dL Calcium 8.3 L (8.4-10.2) mg/dL Total Bilirubin 1.4 H (0.2-1.3) mg/dL ALT 79 H (21-72) U/L Total Protein 4.5 L (6.3-8.2) g/dL Albumin 2.5 L (3.5-5.0) g/dL Ur 24 Hour Volume (250-2400) mls 09/30/19 09/30/19 10/01/19 Range/Units 17:30 23:56 05:38 RBC (4.30-5.90) m/uL Hgb (13.0-17.5) gm/dL Hct (39.0-53.0) % Lymphocytes # (1.0-4.8) k/uL Potassium (3.5-5.1) mmol/L Chloride (98-107) mmol/L BUN (9-20) mg/dL Creatinine (0.66-1.25) mg/dL Glucose (74-99) mg/dL POC Glucose (mg/dL) 205 H 176 H (75-99) mg/dL Calcium (8.4-10.2) mg/dL Total Bilirubin (0.2-1.3) mg/dL ALT (21-72) U/L Total Protein (6.3-8.2) g/dL Albumin (3.5-5.0) g/dL Ur 24 Hour Volume 2875 H (250-2400) mls 10/01/19 10/01/19 Range/Units 06:54 06:54 RBC 3.71 L (4.30-5.90) m/uL Hgb 10.6 L (13.0-17.5) gm/dL Hct 32.6 L (39.0-53.0) % Lymphocytes # 0.6 L (1.0-4.8) k/uL Potassium (3.5-5.1) mmol/L Chloride 110 H (98-107) mmol/L BUN 27 H (9-20) mg/dL Creatinine 1.58 H (0.66-1.25) mg/dL Glucose 161 H (74-99) mg/dL POC Glucose (mg/dL) (75-99) mg/dL Calcium 8.1 L (8.4-10.2) mg/dL Total Bilirubin (0.2-1.3) mg/dL ALT (21-72) U/L Total Protein 4.5 L (6.3-8.2) g/dL Albumin 2.4 L (3.5-5.0) g/dL Ur 24 Hour Volume (250-2400) mls Microbiology - Last 24 Hours (Table) 09/30/19 16:48 Gram Stain - Preliminary Peritoneal Fluid Body Fluid Culture - Preliminary 09/27/19 23:47 Anaerobic Culture - Preliminary Abdomen Clostridium species 09/25/19 19:25 Blood Culture - Preliminary Blood No Growth after 120 hours 09/27/19 23:47 Gram Stain - Final Abdomen Wound Culture - Final Assessment and Plan Assessment: Elevated liver enzymes and hyperbilirubinemia secondary to common bile duct stone. Status post ERCP and removal on 09/26/2019. Liver enzymes and bilirubin level improving Acute gangrenous cholecystitis status post subtotal cholecystectomy on 09/28/2019 Hypokalemia: Potassium is 3.8 today Sepsis secondary to acute ascending cholangitis. Acute kidney injury prerenal versus urinary retention. Creatinine 1.82, baseline around 1.3 on admission. Today's creatinine is 1.58 today Possible CK D stage III due to diabetic nephropathy Hypertension Diabetes type 2 [id number]. Metformin will be on hold due to elevated creatinine level. Anxiety/depression DVT prophylaxis with Lovenox subcu. Plan: Patient will be continued on antibiotics in the form of Zosyn. Abdominal wound cultures preliminary showing Clostridium species. Will await finalization. Liver enzymes and bilirubin level is trending down. Gentle hydration and avoid nephrotoxic medications. Patient is currently with Guzmán catheter due to urinary retention. Nephrology is following. Creatinine level is stable at 1.58 today. Guzmán is being removed today. Patient encouraged with incentive spirometry and ambulation. Tolerating oral diet and is being advanced to soft diet. PT OT. Metformin will be on hold due to elevated creatinine level greater than 1.5. Further recommendations based on the clinical course.
[2019-10-01 11:55] LABS: Glucose,Whole Blood 155 mg/dL (75-99)
--- NOTE | 2019-10-01 12:27 | CDI ---
Documentation Clarification Form Date: 10/01/2019 12:13:11 PM From: Idalia ShawDraperANDREIA, CCDS Admit Date: 09/25/2019 7:17:00 PM Patient Name: Kendrick Choe Visit Number: [id number] Discharge Date: ATTENTION: The Clinical Documentation Specialists (CDI) and [facility] Coding Staff appreciate your assistance in clarifying documentation. Please respond to the clarification below the line at the bottom and electronically sign. The CDI & [facility] Coding staff will review the response and follow-up if needed. Please note: Queries are made part of the Legal Health Record. If you have any questions, please contact the author of this message via ITS. Dr. Estefany Saenz: The patient had a Guzmán catheter inserted postoperative for urinary retention. Patients Admitting Diagnosis: Acute gangrenous cholecystitis with Sepsis. Post-Operative Diagnosis: Same. Procedure performed: ERCP & Laparoscopic Cholecystectomy with Lysis of adesions from omentum. History/Risk Factors: Hypertension, Hyperlipidemia, DM II & CAD. Clinical Indicators: Patient presented with RUQ abdominal pain, underwent an ERCP & Lap Milla for acute gangrenous cholecystitis. Postoperatively, creatinine rising & Guzmán catheter was inserted on day of surgery 09/28. Catheter remains due to urinary retention. LABS: Daily Creatinine: 1.35^ - 1.41 - 1.39 - 1.82 - 1.82 - 1.82 - 1.58. 09/29 Bladder Scan: Possible renal cyst, no hydronephrosis. Treatment: Surgery as above. IV Ampcillin, IV Zosyn, IV Zofran, IV Lasix, Guzmán catheter In order to accurately reflect this patients severity of illness, please clarify if the post-operative diagnosis of urinary retention is: An expected post-procedural or post-surgical condition An unexpected post-procedural or post-surgical condition related to surgical care (a complication of care) An unexpected post-procedural or post-surgical condition, related to the patients underlying medical comorbidities Other, please specify ____ Unable to determine (Last Revision: January 2019) Upon further discussion, patient reports intermittent troubles with urination prior to surgery likely consistent with pre-existing symptom of lower urinary obstruction exacerbated with surgery, an expected outcome KM 10/01/19 @ 6[address] [facility]
[2019-10-01] MEDS ORDERED: TAMSULOSIN 0.4 MG CAP.ER.24H PO STA (13:03)
[2019-10-01] MEDS ORDERED: AMPICILLIN-SULBACTAM 3 GM in SODIUM CHLORIDE 0.9% 100 ML IVPB SCH ×2 (13:04→18:00)
--- NOTE | 2019-10-01 13:09 | PN ---
PROGRESS NOTE DATE OF SERVICE: 10/01/2019 REASON FOR FOLLOWUP: Acute gangrenous cholecystitis and ascending cholangitis. INTERVAL HISTORY: The patient is currently afebrile. The patient has been breathing comfortably. Denies having any chest pain or any cough. Abdominal pain is currently controlled down to about 4/10, no radiation. No nausea, no vomiting. No diarrhea. Guzmán catheter has been discontinued. PHYSICAL EXAMINATION: Blood pressure is 152/81 with a pulse of 66, temperature 97.9. He is 97% on room air. General description is an elderly male lying in bed in no distress. RESPIRATORY SYSTEM: Unlabored breathing, clear to auscultation anteriorly. HEART: S1, S2. Regular rate and rhythm. ABDOMEN: Soft, no tenderness. LABS: Hemoglobin is 10.6, white count 7.5. BUN of 27, creatinine 1.58. Abdominal culture showing Clostridium species. DIAGNOSTIC IMPRESSION AND PLAN: Patient with severe gangrenous cholecystitis with ascending cholangitis, status post cholecystectomy. Abdominal culture of Clostridium species. Antibiotic will be adjusted to Unasyn 3 grams q.6 and plan is to finish therapy with oral Augmentin. Continue with supportive care. MMODL / IJN: [id number] /
--- NOTE | 2019-10-01 13:43 | P.PN ---
<Nora Up A - Last Filed: 10/01/19 13:35> Subjective Progress Note Date: 10/01/19 CHIEF COMPLAINT: Acute gangrenous cholecystitis with ascending cholangitis HISTORY OF PRESENT ILLNESS: Patient is s/p ERCP with removal of common bile duct stones. He is also status post cholecystectomy with features of ileus including acute gangrenous necrotic cholecystitis with subtotal cholecystectomy. Patient examined this morning. He is sitting up in the chair. He reports his pain is tolerable. He reports his pain is tolerable. Guzmán catheter was discontinued this morning. Patient is due to void. PHYSICAL EXAM: VITAL SIGNS: Reviewed CONSTITUTIONAL: Well developed and in no acute distress. EYES: No sclera icterus present. Extraocular movements grossly intact. HEAD, EARS, NOSE, THROAT: Moist buccal mucosa. Head is atraumatic, normocephalic. Hears conversational speech. No nasal drainage. RESPIRATORY: Non-labored respirations and equal bilateral excursions. CARDIOVASCULAR: Palpable 2+ radial pulses. ABDOMEN: Soft. Appropriate surgical tenderness. KARL serosanguineous. Incisions clean dry and intact. MUSCULOSKELETAL: No gross deformity of the lower extremities noted. No clubbing. No cyanosis. SKIN: Good skin turgor. Well perfused. NEUROLOGIC: Cranial nerves I through XII grossly intact. No focal or lateralizing signs. PSYCH: Appropriate affect. Alert and oriented to person, place and time. ASSESSMENT: 1. Acute gangrenous necrotic cholecystitis status post subtotal cholecystectomy 2. History of ascending cholangitis 3. Acute kidney injury PLAN: Augmentin recommended at discharge per Dr. Vieyra Continue KARL drain at discharge Begin Flomax. Patient is due to void. If patient is able to void, will discharge patient home today Nurse practitioner note has been reviewed by physician. Signing provider agrees with the documented findings, assessment, and plan of care. Objective - Vital Signs Vital signs: Vital Signs Temp 97.9 F 10/01/19 07:00 Pulse 78 10/01/19 07:34 Resp 16 10/01/19 07:34 BP 152/81 10/01/19 07:00 Pulse Ox 97 10/01/19 07:00 Intake & Output 09/30/19 10/01/19 10/01/19 18:59 06:59 18:59 Intake Total 750 350 350 Output Total 1250 805 Balance -500 -455 350 Intake: Intake, IV Titration 200 350 Amount Piperacillin-Tazobactam 3 200 .375 gm In Sodium Chloride 0.9% 100 ml @ 25 mls/hr IVPB Q8H [facility] Rx#: [id number] Sodium Chloride 0.9% 1, 350 000 ml @ 100 mls/hr IV . Q10H [facility] Rx#:[id number] Oral 550 350 Output: Drainage 50 5 Right Lower Abdomen 50 5 Urine 1200 800 Other: Voiding Method Indwelling Catheter Indwelling Catheter Indwelling Catheter # Voids 1 - Labs CBC & Chem 7: 10/01/19 06:54 10/01/19 06:54 Labs: Abnormal Lab Results - Last 24 Hours (Table) 09/30/19 09/30/19 09/30/19 Range/Units 09:34 16:59 17:30 RBC (4.30-5.90) m/uL Hgb (13.0-17.5) gm/dL Hct (39.0-53.0) % Lymphocytes # (1.0-4.8) k/uL Potassium 3.1 L (3.5-5.1) mmol/L Chloride 108 H (98-107) mmol/L BUN 27 H (9-20) mg/dL Creatinine 1.82 H (0.66-1.25) mg/dL Glucose 166 H (74-99) mg/dL POC Glucose (mg/dL) 121 H (75-99) mg/dL Calcium 8.3 L (8.4-10.2) mg/dL Total Bilirubin 1.4 H (0.2-1.3) mg/dL ALT 79 H (21-72) U/L Total Protein 4.5 L (6.3-8.2) g/dL Albumin 2.5 L (3.5-5.0) g/dL Ur 24 Hour Volume 2875 H (250-2400) mls 09/30/19 10/01/19 10/01/19 Range/Units 23:56 05:38 06:54 RBC (4.30-5.90) m/uL Hgb (13.0-17.5) gm/dL Hct (39.0-53.0) % Lymphocytes # (1.0-4.8) k/uL Potassium (3.5-5.1) mmol/L Chloride 110 H (98-107) mmol/L BUN 27 H (9-20) mg/dL Creatinine 1.58 H (0.66-1.25) mg/dL Glucose 161 H (74-99) mg/dL POC Glucose (mg/dL) 205 H 176 H (75-99) mg/dL Calcium 8.1 L (8.4-10.2) mg/dL Total Bilirubin (0.2-1.3) mg/dL ALT (21-72) U/L Total Protein 4.5 L (6.3-8.2) g/dL Albumin 2.4 L (3.5-5.0) g/dL Ur 24 Hour Volume (250-2400) mls 10/01/19 10/01/19 Range/Units 06:54 11:54 RBC 3.71 L (4.30-5.90) m/uL Hgb 10.6 L (13.0-17.5) gm/dL Hct 32.6 L (39.0-53.0) % Lymphocytes # 0.6 L (1.0-4.8) k/uL Potassium (3.5-5.1) mmol/L Chloride (98-107) mmol/L BUN (9-20) mg/dL Creatinine (0.66-1.25) mg/dL Glucose (74-99) mg/dL POC Glucose (mg/dL) 155 H (75-99) mg/dL Calcium (8.4-10.2) mg/dL Total Bilirubin (0.2-1.3) mg/dL ALT (21-72) U/L Total Protein (6.3-8.2) g/dL Albumin (3.5-5.0) g/dL Ur 24 Hour Volume (250-2400) mls Microbiology - Last 24 Hours (Table) 09/27/19 23:47 Anaerobic Culture - Final Abdomen Clostridium perfringens 09/30/19 16:48 Gram Stain - Preliminary Peritoneal Fluid Body Fluid Culture - Preliminary 09/25/19 19:25 Blood Culture - Preliminary Blood No Growth after 120 hours 09/27/19 23:47 Gram Stain - Final Abdomen Wound Culture - Final <Estefany Saenz N - Last Filed: 10/01/19 21:21> Subjective As above, patient reevaluated this evening. He is urinating spontaneously. Patient clear for discharge. Objective - Vital Signs Vital signs: Vital Signs Temp 98.2 F 10/01/19 19:39 Pulse 68 10/01/19 19:39 Resp 18 10/01/19 19:39 BP 152/85 10/01/19 19:39 Pulse Ox 94 L 10/01/19 19:39 Intake & Output 10/01/19 10/01/19 10/02/19 06:59 18:59 06:59 Intake Total 350 1400 Output Total 805 230 200 Balance -455 1170 -200 Intake: Intake, IV Titration 350 800 Amount Ampicillin-Sulbactam 3 gm 100 In Sodium Chloride 0.9% 100 ml @ 200 mls/hr IVPB Q6HR [facility] Rx#:[id number] Sodium Chloride 0.9% 1, 350 700 000 ml @ 100 mls/hr IV . Q10H [facility] Rx#:[id number] Oral 600 Output: Drainage 5 10 Right Lower Abdomen 5 10 Urine 800 220 200 Other: Voiding Method Indwelling Catheter Indwelling Catheter # Voids 1 - Labs CBC & Chem 7: 10/01/19 06:54 10/01/19 06:54 Labs: Abnormal Lab Results - Last 24 Hours (Table) 09/30/19 10/01/19 10/01/19 Range/Units 23:56 05:38 06:54 RBC (4.30-5.90) m/uL Hgb (13.0-17.5) gm/dL Hct (39.0-53.0) % Lymphocytes # (1.0-4.8) k/uL Chloride 110 H (98-107) mmol/L BUN 27 H (9-20) mg/dL Creatinine 1.58 H (0.66-1.25) mg/dL Glucose 161 H (74-99) mg/dL POC Glucose (mg/dL) 205 H 176 H (75-99) mg/dL Calcium 8.1 L (8.4-10.2) mg/dL Total Protein 4.5 L (6.3-8.2) g/dL Albumin 2.4 L (3.5-5.0) g/dL 10/01/19 10/01/19 10/01/19 Range/Units 06:54 11:54 17:23 RBC 3.71 L (4.30-5.90) m/uL Hgb 10.6 L (13.0-17.5) gm/dL Hct 32.6 L (39.0-53.0) % Lymphocytes # 0.6 L (1.0-4.8) k/uL Chloride (98-107) mmol/L BUN (9-20) mg/dL Creatinine (0.66-1.25) mg/dL Glucose (74-99) mg/dL POC Glucose (mg/dL) 155 H 167 H (75-99) mg/dL Calcium (8.4-10.2) mg/dL Total Protein (6.3-8.2) g/dL Albumin (3.5-5.0) g/dL Microbiology - Last 24 Hours (Table) 09/30/19 16:48 Gram Stain - Preliminary Peritoneal Fluid Body Fluid Culture - Preliminary 09/27/19 23:47 Anaerobic Culture - Final Abdomen Clostridium perfringens 09/25/19 19:25 Blood Culture - Preliminary Blood No Growth after 120 hours Assessment and Plan (1) Sepsis Status: Acute Code(s): A41.9 - SEPSIS, UNSPECIFIED ORGANISM SNOMED Code(s): 88455000 (2) Fever Status: Acute Code(s): R50.9 - FEVER, UNSPECIFIED SNOMED Code(s): 975264540 (3) Acute cholecystitis due to biliary calculus Status: Acute Code(s): K80.00 - CALCULUS OF GALLBLADDER W ACUTE CHOLECYST W/O OBSTRUCTION SNOMED Code(s): 39490823264368 (4) Diabetes type 2, uncontrolled Status: Acute Code(s): E11.65 - TYPE 2 DIABETES MELLITUS WITH HYPERGLYCEMIA SNOMED Code(s): 445978210 (5) Hypertensive heart disease Status: Acute Code(s): I11.9 - HYPERTENSIVE HEART DISEASE WITHOUT HEART FAILURE SNOMED Code(s): 97106538 (6) Depressive disorder Status: Acute Code(s): F32.9 - MAJOR DEPRESSIVE DISORDER, SINGLE EPISODE, UNSPECIFIED SNOMED Code(s): 68050271 (7) Acute cholecystitis Status: Acute Code(s): K81.0 - ACUTE CHOLECYSTITIS SNOMED Code(s): 18732361 (8) Hyperlipidemia associated with type 2 diabetes mellitus Status: Acute Code(s): E11.69 - TYPE 2 DIABETES MELLITUS WITH OTHER SPECIFIED COMPLICATION; E78.5 - HYPERLIPIDEMIA, UNSPECIFIED SNOMED Code(s): 065293803326 (9) Cholangitis due to bile duct calculus with obstruction Status: Acute Code(s): K80.31 - CALCULUS OF BILE DUCT W CHOLANGITIS, UNSP, WITH OBSTRUCTION SNOMED Code(s): 2897862204359513 (10) Gangrenous cholecystitis Status: Acute Code(s): K81.0 - ACUTE CHOLECYSTITIS SNOMED Code(s): 76314805 (11) Ascending cholangitis Status: Acute Code(s): K83.09 - OTHER CHOLANGITIS SNOMED Code(s): 42550898
[2019-10-01 16:39] VITALS: TEMP 98.2
[2019-10-01 17:27] LABS: Glucose,Whole Blood 167 mg/dL (75-99)
--- NOTE | 2019-10-01 18:51 | PN ---
PROGRESS NOTE Patient is seen for followup for acute kidney injury. His Guzmán catheter was discontinued and we are planning for voiding trial. Renal function has improved with creatinine down to 1.5 today. PHYSICAL EXAMINATION: On examination, patient is comfortable. This morning, blood pressure was 152/81, heart rate of 80 per minute. He is afebrile. Examination of the heart S1, S2. Examination of the lungs, decreased breath sounds at bases. Abdomen is soft, nontender. Examination of lower extremities shows no significant edema. PIPE COVERING MOLDER exam grossly intact. LAB: Show sodium 142, potassium 3.8, BUN 27, creatinine 1.58, hemoglobin 10.6. ASSESSMENT: 1. Acute kidney injury associated with NSAIDs. Ischemic acute tubular necrosis component of urine retention status post discontinuation of Guzmán catheter this morning with plans for voiding trial. The patient is off BINDU inhibitors as well as NSAIDs. Renal function has improved. He will need labs to be done as outpatient. 2. Status post cholecystectomy. 3. Gangrenous cholecystitis and cholelithiasis status post ERCP and removal of bile duct stones. 4. History of hypertension. PLAN: Voiding trial today after discontinuation of Guzmán catheter. Repeat labs in a.m. Continue to encourage increased oral intake. Continue to hold off on BINDU inhibitors for now. MMODL / IJN: [id number] /
[2019-10-01 19:41] VITALS: BP 152/85; PULSE 68; RESP 18
--- NOTE | 2019-10-01 21:28 | P.DS ---
Providers Date of admission: 09/25/19 19:17 Expected date of discharge: 10/01/19 Attending physician: Estefany Saenz Consults: 09/25/19 21:18 Consult Physician Routine Consulting Provider: Con Farrell Consult Reason/Comments: Cardiac clearance Do you want consulting provider notified?: Yes, Notify in am 09/26/19 11:52 Consult Physician Routine Consulting Provider: Carie Farrell Consult Reason/Comments: elevated bilirubin Do you want consulting provider notified?: Yes 09/26/19 13:36 Consult Physician Routine Consulting Provider: Elisa Parham Consult Reason/Comments: New renal insufficiency Do you want consulting provider notified?: Yes 09/28/19 13:26 Consult Physician Routine Consulting Provider: Scott Vieyra Consult Reason/Comments: Antibiotic management cholangitis necrotizing cholecystitis Do you want consulting provider notified?: Yes 09/28/19 20:26 Consult Physician Routine Consulting Provider: Fuad Salguero Consult Reason/Comments: Medical management Do you want consulting provider notified?: Yes Primary care physician: Martir Hidalgo MD - Discharge Diagnosis(es) (1) Sepsis Status: Acute (2) Fever Status: Acute (3) Acute cholecystitis due to biliary calculus Status: Acute (4) Diabetes type 2, uncontrolled Status: Acute (5) Hypertensive heart disease Status: Acute (6) Depressive disorder Status: Acute (7) Acute cholecystitis Status: Acute (8) Hyperlipidemia associated with type 2 diabetes mellitus Status: Acute (9) Cholangitis due to bile duct calculus with obstruction Status: Acute (10) Gangrenous cholecystitis Status: Acute (11) Ascending cholangitis Status: Acute (12) Urinary retention with incomplete bladder emptying Status: Acute (13) Chronic kidney disease, stage 3 (moderate) Status: Acute Hospital Course: POSTOPERATIVE DIAGNOSES: 1. Acute gangrenous cholecystitis with necrosis 2. Symptomatic gallstones 3. Jaundice secondary to common bile duct obstruction 4. Status post ERCP 5. Diabetes type 2, uncontrolled 6. Depressive disorder 7. Acute kidney injury 8. Hypertensive heart disease 9. Hyperlipidemia 10. Gastroesophageal reflux disease 11. Ileus 12. Choledocholithiasis with sepsis 13. Greater omentum adhesions to gallbladder COURSE: The patient is a 64-year-old male who presented acutely to the emergency room with ascending cholangitis including sepsis and symptomatic gallstones. He underwent an ERCP for choledocholithiasis. He then underwent cholecystectomy with features of gangrenous cholecystitis with ileus secondary to ascending cholangitis. He also reports pre-existing history of known kidney disorder as well as pre-existing lower urinary obstructive syndrome which has not been previously managed or assessed. During his hospitalization, presented with acute on chronic kidney failure secondary to sepsis and urology was consult. Infectious disease was also consult with his degree of sepsis. Cultures grew back Clostridium. His sepsis resolved. His liver enzymes resolved. Prior to discharge, his ileus resolved. His kidney function had been stable. Medical reconciliation was performed with discontinuance of nephrotoxic agents. Follow multiple providers including surgery, nephrology, infectious disease and primary care provider device. Home health care services also offered. Patient was discharged home with the KARL drain. Procedures: OPERATION: 1. Robotic-assisted da Hsarmin Xi laparoscopic lysis of adhesions of 1.5 hours, multiport with FIREFLY 2. Robotic-assisted da Sharmin Xi laparoscopic subtotal cholecystectomy, multiport with FIREFLY 3. Placement of round Mack-Mary drain, right upper quadrant ESTIMATED BLOOD LOSS: 50 mL. SPECIMENS REMOVED: 1. Gallbladder. 2. Anaerobic and aerobic cultures gallbladder fluid COMPLICATIONS: None. OPERATIVE FINDINGS: 1. Generalized diffuse ileus 2. Acute gangrenous cholecystitis with necrosis 3. Severe edematous changes of gallbladder infundibulum along the junction of the cystic duct and common bile duct 4. Subtotal cholecystectomy performed at infundibulum with 45 mm green and white robotic staple loads 5. Oversew of infundibulum 6. Indocyanine green test demonstrates no bile leak 7. Complete cystic duct obstruction confirmed with indocyanine green 8. Colonic diverticulosis 9. Gallbladder completely encased in omentum including severe adhesions adding complexity to the case 1.5 hours for extensive lysis of adhesions performed Patient Condition at Discharge: Good Plan - Discharge Summary Discharge Rx Participant: Yes New Discharge Prescriptions: New Amoxic-Pot Clav 875-125Mg [Augmentin 875-125] 1 tab PO Q12HR #20 tablet Acetaminophen Tab [Tylenol Tab] 500 mg PO Q6H PRN #30 tablet PRN Reason: Pain RX: Tamsulosin [Flomax] 0.4 mg PO DAILY #5 cap.er.24h Continue RX: metFORMIN HCL ER [Glucophage Xr] 1,000 mg PO AC-BID RX: Sertraline [Zoloft] 100 mg PO DAILY RX: Omeprazole 20 mg PO DAILY RX: buPROPion XL [Wellbutrin XL] 150 mg PO AC-BRKFST RX: Atorvastatin Calcium [Lipitor] 10 mg PO HS Discontinued Lisinopril [Zestril] 10 mg PO DAILY Discharge Medication List RX: Atorvastatin Calcium [Lipitor] 10 mg PO HS 09/25/19 [History] RX: Omeprazole 20 mg PO DAILY 09/25/19 [History] RX: Sertraline [Zoloft] 100 mg PO DAILY 09/25/19 [History] RX: buPROPion XL [Wellbutrin XL] 150 mg PO AC-BRKFST 09/25/19 [History] RX: metFORMIN HCL ER [Glucophage Xr] 1,000 mg PO AC-BID 09/25/19 [History] Acetaminophen Tab [Tylenol Tab] 500 mg PO Q6H PRN #30 tablet 10/01/19 [Rx] Amoxic-Pot Clav 875-125Mg [Augmentin 875-125] 1 tab PO Q12HR #20 tablet 10/01/19 [Rx] RX: Tamsulosin [Flomax] 0.4 mg PO DAILY #5 cap.er.24h 10/01/19 [Rx] Follow up Appointment(s)/Referral(s): Elisa Parham MD [STAFF PHYSICIAN] - 1 Week Martir Hidalgo MD [Primary Care Provider] - 1-2 days Estefany Saenz MD [STAFF PHYSICIAN] - 10/08/19 Scott Vieyra MD [STAFF PHYSICIAN] - 1 Week Con Farrell MD [STAFF PHYSICIAN] - 10/10/19 12:45 pm Patient Instructions/Handouts: Mack-Mary Drain Care (DC), Laparoscopic Cholecystectomy (GEN) Activity/Diet/Wound Care/Special Instructions: No lifting over 10 pounds You may shower. No soaking or tub baths Very light activity until you are reevaluated at your follow up appointment with your surgeon Diet as tolerated Keep a log of KARL drain output and bring with you to your follow-up appointment Discharge Disposition: HOME SELF-CARE
[2019-10-02] MEDS ORDERED: TAMSULOSIN 0.4 MG CAP.ER.24H PO SCH (08:30)
== END 2019-10-01 20:27 | disposition home or self-care (01) | DRG 853 ==
LOC: EC 15:47 → 4MS4W 19:17 → 4SSUR 09-27 20:00
PROVIDERS: ADMIT Surgery Plastic and Reconstructive Surgery; ATTEND Surgery Plastic and Reconstructive Surgery
PROC: 0FC98ZZ Extirpation of Matter from Common Bile Duct, Via Natural or Artificial Opening Endoscopic (ICD-10-PCS; 2019-09-27)
PROC: 0FT44ZZ Resection of Gallbladder, Percutaneous Endoscopic Approach (ICD-10-PCS; principal; 2019-09-28)
PROC: 0DNU4ZZ Release Omentum, Percutaneous Endoscopic Approach (ICD-10-PCS; 2019-09-28)
PROC: 8E0W4CZ Robotic Assisted Procedure of Trunk Region, Percutaneous Endoscopic Approach (ICD-10-PCS; 2019-09-28)
DX: A41.9 Sepsis, unspecified organism (principal); N17.0 Acute kidney failure with tubular necrosis; J98.11 Atelectasis; K56.7 Ileus, unspecified; K80.43 Calculus of bile duct with acute cholecystitis with obstruction; I95.9 Hypotension, unspecified; K82.A1 Gangrene of gallbladder in cholecystitis; K82.8 Other specified diseases of gallbladder; E11.22 Type 2 diabetes mellitus with diabetic chronic kidney disease; E11.69 Type 2 diabetes mellitus with other specified complication; I27.20 Pulmonary hypertension, unspecified; I07.1 Rheumatic tricuspid insufficiency; E11.65 Type 2 diabetes mellitus with hyperglycemia; N18.3 Chronic kidney disease, stage 3 (moderate); I13.10 Hypertensive heart and chronic kidney disease without heart failure, with stage 1 through stage 4 chronic kidney disease, or unspecified chronic kidney disease; D63.1 Anemia in chronic kidney disease; E78.5 Hyperlipidemia, unspecified; E87.6 Hypokalemia; F32.9 Major depressive disorder, single episode, unspecified; K21.9 Gastro-esophageal reflux disease without esophagitis; K57.30 Diverticulosis of large intestine without perforation or abscess without bleeding; K66.0 Peritoneal adhesions (postprocedural) (postinfection); T39.395A Adverse effect of other nonsteroidal anti-inflammatory drugs [NSAID], initial encounter; F41.9 Anxiety disorder, unspecified; R33.9 Retention of urine, unspecified; Z79.84 Long term (current) use of oral hypoglycemic drugs; Z79.899 Other long term (current) drug therapy
CPT/HCPCS: 36415; 43262; 43264; 71046; 74177; 74328; 76770; 80053; 81001; 81050; 82570; 83605; 83690; 83735; 84100; 84484; 85025; 85610; 85730; 87040; 87070; 87075; 87205; 88304; 93005; 93306; 96361; 96365; 96366; 96375; 99285

== ENCOUNTER → 2020-09-02 | Outpatient (CLI) | payer MEDICARE ==
--- NOTE | 2020-09-02 14:06 | US ---
EXAMINATION TYPE: US venous doppler duplex LE RT DATE OF EXAM: 09/02/2020 1:11 PM COMPARISON: NONE CLINICAL HISTORY: 65-year-old male M79.661 pain in right lower leg. SIDE PERFORMED: Right TECHNIQUE: The lower extremity deep venous system is examined utilizing real time linear array sonog carmina with graded compression, doppler sonography and color-flow sonography. FINDINGS: VESSELS IMAGED: Common Femoral Vein Deep Femoral Vein Greater Saphenous Vein * Femoral Vein Popliteal Vein Proximal Calf Veins Posterior tibial veins (* superficial vessels) Right Leg: Negative for DVT IMPRESSION: No evidence for DVT within the right lower extremity.
== END | disposition home or self-care (01) ==
LOC: RADUSWWP 12:54
PROVIDERS: ATTEND Family Medicine
DX: M79.661 Pain in right lower leg (principal)

== ENCOUNTER 2021-02-11 07:01 | Day surgery (SDC) | payer MEDICARE ==
[2021-02-08 10:03] VITALS: BMI 27.7
[2021-02-11] MEDS ORDERED: LACTATED RINGERS 1,000 ML IV SCH (07:07)
[2021-02-11 07:34] VITALS: TEMP 97.1
[2021-02-11] MEDS ORDERED: LIDOCAINE 1% (10MG/ML) FOR IV START INTRADERMA ONE (07:34)
[2021-02-11 07:46] LABS: Glucose,Whole Blood 128 mg/dL (75-99)
[2021-02-11] MEDS ORDERED: PROPOFOL 10 MG/ML 20 ML VIAL IV ONE (08:09)
--- NOTE | 2021-02-11 08:10 | P.GSHP ---
History of Present Illness H&P Date: 02/11/21 CHIEF COMPLAINT: Colon screen HISTORY OF PRESENT ILLNESS: The patient is a 65-year-old male who presents for colon screen. Lower endoscopy was offered for further evaluation and management. PAST MEDICAL HISTORY: Please see list. PAST SURGICAL HISTORY: Please see list. MEDICATIONS: Please see list. ALLERGIES: Please see list. SOCIAL HISTORY: No illicit drug use FAMILY HISTORY: No reports of Crohn disease or ulcerative colitis. REVIEW OF ORGAN SYSTEMS: CONSTITUTIONAL: No reports of fevers or chills. PHYSICAL EXAM: VITAL SIGNS: Stable GENERAL: Well-developed pleasant in no acute distress. HEENT: No scleral icterus. Extraocular movements grossly intact. Moist buccal mucosa. NECK: Supple without lymphadenopathy. CHEST: Unlabored respirations. Equal bilateral excursions. CARDIOVASCULAR: Regular rate and rhythm. Distal 2+ pulses. ABDOMEN: Soft, nontender, nondistended. MUSCULOSKELETAL: No clubbing, cyanosis, or edema. ASSESSMENT: 1. Colon screen. PLAN: 1. Recommend proceeding with a lower endoscopy Past Medical History Past Medical History: Diabetes Mellitus, Hyperlipidemia, Hypertension Additional Past Medical History / Comment(s): diet controlled diabetic History of Any Multi-Drug Resistant Organisms: None Reported Past Surgical History: Cholecystectomy, Hernia Repair Past Anesthesia/Blood Transfusion Reactions: No Reported Reaction Smoking Status: Never smoker - Past Family History Mother Additional Family Medical History / Comment(s): brain tumer Medications and Allergies Home Medications Medication Instructions Recorded Confirmed Type Atorvastatin Calcium [Lipitor] 20 mg PO HS 09/25/19 02/08/21 History Sertraline [Zoloft] 100 mg PO DAILY 09/25/19 02/08/21 History Acetaminophen Tab [Tylenol Tab] 500 mg PO Q6H PRN #30 tablet 10/01/19 02/08/21 Rx Multivit-Min/FA/Lycopen/Lutein 1 each PO DAILY 02/08/21 02/08/21 History [Centrum Silver Tablet] Allergies Allergy/AdvReac Type Severity Reaction Status Date / Time No Known Allergies Allergy Verified 02/11/21 07:23 Surgical - Exam Vital Signs Temp Pulse Resp BP Pulse Ox 97.1 F L 102 H 16 144/90 99 02/11/21 07:33 02/11/21 07:33 02/11/21 07:33 02/11/21 07:33 02/11/21 07:33 Results - Labs Abnormal Lab Results - Last 24 Hours (Table) 02/11/21 Range/Units 07:40 POC Glucose (mg/dL) 128 H (75-99) mg/dL
--- NOTE | 2021-02-11 08:39 | P.PCN ---
Date of Procedure: 02/11/21 Description of Procedure: PREOPERATIVE DIAGNOSIS: Colonoscopy screening. POSTOPERATIVE DIAGNOSIS: Colonoscopy screening. OPERATION: Colonoscopy to the ascending colon SURGEON: Estefany Saenz MD. ANESTHESIA: MAC. INDICATIONS: The patient is a 65-year-old male who presents for colonoscopy screening. Benefits and risks were described and informed consent was obtained. DESCRIPTION OF PROCEDURE: The patient had undergone Sutab prep. The patient had been brought into the operating room and laid in the left lateral decubitus position. After adequate intravenous sedation, the rectum was examined with 2% lidocaine jelly. The prostate fossa was unremarkable. No external hemorrhoids were encountered. The rectal tone was within normal limits. No lesions were palpated in the rectal vault. An Olympus colonoscope was advanced until the The ascending colon was viewed. The scope was advanced to the termination at the proximal ascending colon. The prep was good. No scattered diverticulosis was encountered. No colonic polyps were found. No evidence of focal colitis was found. Retroflexion of the scope demonstrated grade 1 internal hemorrhoids without active bleeding or inflammation. The colon was desufflated. The patient had tolerated the procedure well. Withdrawal time was over 6 minutes. FINDINGS: Aronchick preparation quality scale 1 (1-5) Internal hemorrhoids, grade 1 No external prolapsed hemorrhoids. No arteriovenous malformations. No adenomatous polyps. No focal colitis. No sigmoid diverticulosis Colonoscope was advanced to the ascending colon. RECOMMENDATIONS: Lower endoscopy in 10 years, 2030 or Cologaurd Plan - Discharge Summary Discharge Rx Participant: No New Discharge Prescriptions: Continue Sertraline [Zoloft] 100 mg PO DAILY Atorvastatin Calcium [Lipitor] 20 mg PO HS Acetaminophen Tab [Tylenol] 500 mg PO Q6H PRN #30 tablet PRN Reason: Pain Multivit-Min/FA/Lycopen/Lutein [Centrum Silver Tablet] 1 each PO DAILY Discharge Medication List Atorvastatin Calcium [Lipitor] 20 mg PO HS 09/25/19 [History] Sertraline [Zoloft] 100 mg PO DAILY 09/25/19 [History] Acetaminophen Tab [Tylenol] 500 mg PO Q6H PRN #30 tablet 10/01/19 [Rx] Multivit-Min/FA/Lycopen/Lutein [Centrum Silver Tablet] 1 each PO DAILY 02/08/21 [History] Follow up Appointment(s)/Referral(s): Estefany Saenz MD [STAFF PHYSICIAN] - As Needed Patient Instructions/Handouts: *Surgery [facility] - (Anesthesia) Endoscopy Discharge Instructions, Colonoscopy (GEN) Activity/Diet/Wound Care/Special Instructions: Repeat colonoscopy 10 , 2030 or Cologaurd Discharge Disposition: HOME SELF-CARE
[2021-02-11 08:50] VITALS: BP 121/72; PULSE 62; RESP 18
== END 2021-02-11 09:00 | disposition home or self-care (01) ==
LOC: ORWHC2ENDO 07:01
PROVIDERS: ATTEND Surgery Plastic and Reconstructive Surgery
DX: Z12.11 Encounter for screening for malignant neoplasm of colon (principal); K64.0 First degree hemorrhoids; E11.9 Type 2 diabetes mellitus without complications; E78.5 Hyperlipidemia, unspecified; I10 Essential (primary) hypertension; Z90.49 Acquired absence of other specified parts of digestive tract; Z98.890 Other specified postprocedural states; Z80.8 Family history of malignant neoplasm of other organs or systems; Z79.899 Other long term (current) drug therapy
CPT/HCPCS: J2704; G0121

== ENCOUNTER → 2021-11-11 | Outpatient (CLI) | payer MEDICARE ==
--- NOTE | 2021-11-11 10:59 | XR ---
EXAMINATION TYPE: XR shoulder complete RT DATE OF EXAM: 11/11/2021 COMPARISON: NONE HISTORY: Pain TECHNIQUE: Shoulder examined in 3 views. FINDINGS: The humeral head articulates with the glenoid. Appears to be a slight step-off on 2 images of the shoulder at the acromioclavicular junction. The AP projection however appears normal without increased space. If there is clinical concern for acromioc lavicular joint separation, without with weight study can be performed. No acute fractures or dislocations are evident. A follow up study can be performed 7-10 days from acute trauma for continued pain. IMPRESSION: 1. No acute osseous abnormality. 2. There may be a step-off at the acromioclavicular junction. Separation could be considered. An acro mioclavicular joint study without with weights could be performed as clinically indicated.
== END | disposition home or self-care (01) ==
LOC: RADXRMAIN 10:25
PROVIDERS: ATTEND Internal Medicine
DX: M25.511 Pain in right shoulder (principal)

== ENCOUNTER → 2021-11-22 | Outpatient (CLI) | payer MEDICARE ==
--- NOTE | 2021-11-22 12:19 | XR ---
EXAMINATION TYPE: XR AC joint BILAT DATE OF EXAM: 11/22/2021 COMPARISON: 11/11/2021 right shoulder HISTORY: 66-year-old male M25.511, right shoulder pain. TECHNIQUE: 2 views bilateral AC joints, without and with weights FINDINGS: Bilateral AC joints are intact. With weights, there is no abnormal offset that develops and no abnorm al widening. The subacromial space is preserved on both sides. No acute fracture. IMPRESSION: No acute osseous abnormality seen. No subluxation or malalignment at the AC joint with weights.
== END | disposition home or self-care (01) ==
LOC: RADXRMAIN 11:39
PROVIDERS: ATTEND Internal Medicine
DX: M25.511 Pain in right shoulder (principal)
CPT/HCPCS: 73050

== ENCOUNTER → 2023-06-13 | Outpatient (CLI) | payer MEDICARE ==
--- NOTE | 2023-06-13 12:02 | XR ---
EXAMINATION TYPE: XR knee 4V LT DATE OF EXAM: 06/13/2023 CLINICAL HISTORY: pain TECHNIQUE: Three views of the left knee are obtained. COMPARISON: None. FINDINGS: There is no acute fracture/dislocation. There is evidence of chondrocalcinosis of the meni sci. Moderate to severe medial tibiofemoral joint space narrowing seen. Intercondylar spur formation and spurring noted along the margins of the femoral condyles and tibial plateaus. The overlying soft tissue appears unremarkable. IMPRESSION: There is no acute fracture or dislocation ICD 10 NO FRACTURE, INITIAL EVALUATION
== END | disposition home or self-care (01) ==
LOC: RADXRMAIN 11:02
PROVIDERS: ATTEND Internal Medicine
DX: M25.562 Pain in left knee (principal)

== ENCOUNTER → 2023-06-21 | Outpatient (CLI) | payer MEDICARE ==
--- NOTE | 2023-06-21 15:53 | US ---
EXAMINATION TYPE: US kidneys/renal and bladder DATE OF EXAM: 06/21/2023 COMPARISON: NONE CLINICAL INDICATION: Male, 67 years old with history of N18.32CHRONIC KIDNEY DISEASE, STAGE 3B; CKD, no symptoms EXAM MEASUREMENTS: Right Kidney: 11.9 x 4.5 x 5.3 cm Left Kidney: 12.4 x 4.0 x 5.6 cm Right Kidney: simple appearing cyst superior pole = 1.7 x 1.4 x 1.2 Left Kidney: No hydronephrosis or masses seen Bladder: wnl IMPRESSION: No hydronephrosis. A benign 1.7 cm upper pole right renal cyst.
== END | disposition home or self-care (01) ==
LOC: RADUSWWP 13:19
PROVIDERS: ATTEND Internal Medicine
DX: N18.32 Chronic kidney disease, stage 3b (principal); N28.1 Cyst of kidney, acquired
CPT/HCPCS: 76770

== ENCOUNTER → 2023-11-08 | Outpatient (CLI) | payer MEDICARE ==
[2023-11-08 15:19] LABS: ALT 16 U/L (10-49); AST 16 U/L (14-35); Albumin 4.8 g/dL (3.8-4.9); Albumin/Globulin Ratio 2.29 Ratio (1.60-3.17); Alkaline Phosphatase 78 U/L (41-126); BUN/Creat Ratio 13.71 Ratio (12.00-20.00); Blood Urea Nitrogen 23.3 mg/dL (9.0-27.0); Carbon Dioxide 26.2 mmol/L (21.6-31.8); Chloride 102 mmol/L (96-109); Chol/HDL Ratio 4.72 Ratio; Globulin 2.1 g/dL (1.6-3.3); Glucose 136 mg/dL (70-110); LDL Cholesterol,Calculated 88.9 mg/dL (0.0-131.0); Phosphorus 3.6 mg/dL (2.4-5.1); Potassium 4.1 mmol/L (3.5-5.5); Sodium 143 mmol/L (135-145); Total Bilirubin 0.6 mg/dL (0.3-1.2); Total Protein 6.9 g/dL (6.2-8.2)
[2023-11-08 15:29] LABS: Basophils # (A) 0.05 X 10*3/uL (0.00-0.10); Basophils % (A) 0.6 %; Eosinophils % (A) 2.3 %; HCT 50.8 % (39.6-50.0); HGB 15.6 g/dL (13.0-17.0); Lymphocytes % (A) 18.6 %; MCH 26.7 pg (27.0-32.0); MCHC 30.7 g/dL (32.0-37.0); MCV 86.8 FL (80.0-97.0); Monocytes # (A) 0.48 X 10*3/uL (0.20-1.00); Monocytes % (A) 5.6 %; NRBC Per 100 WBC 0 X 10*3/uL (0.00-0.01); Neutrophils % (A) 72.3 %; Platelet Count 209 X 10*3/uL (140-440); RBC 5.85 X 10*6/uL (4.40-5.60); RDW 15.1 % (11.5-14.5); WBC 8.58 X 10*3/uL (4.50-10.00)
== END | disposition home or self-care (01) ==
LOC: LABWHC1 08:55
PROVIDERS: ATTEND Internal Medicine
DX: Z00.00 Encounter for general adult medical examination without abnormal findings (principal); E11.9 Type 2 diabetes mellitus without complications; N18.32 Chronic kidney disease, stage 3b
CPT/HCPCS: 36415; 80053; 80061; 83036; 83735; 83970; 84100; 84443; 85025